=== PATIENT | female | born 1980 | race African-American/Black ===

== ENCOUNTER 2017-02-23 10:34 | Emergency (ER) | payer BC, MEDICAID ==
[2017-02-23] MEDS ORDERED: LIDOCAINE 2% VISCOUS SOLN 20 ML UDCUP PO ONE (11:02)
[2017-02-23] MEDS ORDERED: METOCLOPRAMIDE HCL ORAL SOLN 10 MG/10 ML UDCUP PO ONE (11:02)
[2017-02-23] MEDS ORDERED: MAG HYDROX/AL HYDROX/SIMETH SUSP 30 ML UDCUP PO ONE (11:02)
[2017-02-23 11:39] LABS: ABSOLUTE EOSINOPHILS # (AUTO) 0.1 10^3/uL (0.0-0.6); ABSOLUTE LYMPHOCYTES (AUTO) 1.1 10^3/uL (0.5-4.7); ABSOLUTE MONOCYTES (AUTO) 0.3 10^3/uL (0.1-1.4); ABSOLUTE NEUT (AUTO) 2.8 10^3/uL (1.7-8.2); BASOPHILS % (AUTO) 0.6 % (0-2); EOSINOPHILS % (AUTO) 1.4 % (0-6); HEMATOCRIT 37.3 % (36.0-47.0); HEMOGLOBIN 12.5 g/dL (12.0-15.5); HGB HCT DIFFERENCE 0.2; LYMPHOCYTES % (AUTO) 26.2 % (13-45); MEAN CORPUSCULAR HEMOGLOBIN 28.9 pg (27.0-33.4); MEAN CORPUSCULAR HGB CONC 33.6 g/dL (32.0-36.0); MEAN CORPUSCULAR VOLUME 86 fl (80-97); MONOCYTES % (AUTO) 6.5 % (3-13); RED BLOOD COUNT 4.34 10^6/uL (3.72-5.28); SEGMENTED NEUTROPHILS % (AUTO) 65.3 % (42-78); WHITE BLOOD COUNT 4.4 10^3/uL (4.0-10.5)
[2017-02-23 12:09] LABS: ALANINE AMINOTRANSFERASE 26 U/L (9-52); ALBUMIN 3.7 g/dL (3.5-5.0); ALKALINE PHOSPHATASE 75 U/L (38-126); ANION GAP 10 (5-19); ASPARTATE AMINO TRANSFERASE 18 U/L (14-36); BILIRUBIN,DIRECT 0.3 mg/dL (0.0-0.4); BILIRUBIN,TOTAL 0.5 mg/dL (0.2-1.3); BLOOD UREA NITROGEN 7 mg/dL (7-20); CALCIUM 8.8 mg/dL (8.4-10.2); CARBON DIOXIDE 24 mmol/L (22-30); CHLORIDE 106 mmol/L (98-107); CREATININE RESULT 0.69 mg/dL (0.52-1.25); GLUCOSE 121 mg/dL (75-110); LIPASE 212.3 U/L (23-300); POTASSIUM 3.5 mmol/L (3.6-5.0); SODIUM 140.3 mmol/L (137-145)
--- NOTE | 2017-02-23 12:25 | ER Document Report ---
ED General - General Chief Complaint: Abdominal Pain Stated Complaint: ABDOMINAL PAIN/PRESSURE TRAVEL OUTSIDE OF THE [place] IN LAST 30 DAYS: No - HPI Patient complains to provider of: epigastric abdominal pain Notes: Patient with epigastric abdominal pain radiating up into her chest worse with eating ongoing for approximately greater than a month. Patient also states whenever the pain occurred she has early Thursday stating that she doesn't feel like eating her food. Denies any nausea vomiting fevers chills. Patient denies any trauma. Patient denies any surgery to her abdomen. - Related Data Allergies/Adverse Reactions: No Known Allergies Allergy (Verified 02/23/17 10:37) Past Medical History - Social History Smoking Status: Current Some Day Smoker Chew tobacco use (# tins/day): No Frequency of alcohol use: Social Drug Abuse: None Family History: Reviewed & Not Pertinent Patient has suicidal ideation: No Patient has homicidal ideation: No Endocrine Medical History: Reports: Hx Diabetes Mellitus Type 2 - gestational diabetes Renal/ Medical History: Denies: Hx Peritoneal Dialysis GI Medical History: Reports: Hx Gastroesophageal Reflux Disease Psychiatric Medical History: Reports: Hx Depression Past Surgical History: Reports: Hx Genitourinary Surgery - D&C - Immunizations Hx Diphtheria, Pertussis, Tetanus Vaccination: Yes - declined Review of Systems - Review of Systems Constitutional: No symptoms reported EENT: No symptoms reported Cardiovascular: No symptoms reported Respiratory: No symptoms reported Gastrointestinal: Abdominal pain Genitourinary: No symptoms reported Female Genitourinary: No symptoms reported Musculoskeletal: No symptoms reported Skin: No symptoms reported Hematologic/Lymphatic: No symptoms reported Neurological/Psychological: No symptoms reported Physical Exam - Vital signs Vitals: Temp Pulse Resp BP Pulse Ox 98.6 F 88 16 148/99 H 97 02/23/17 10:37 02/23/17 10:37 02/23/17 10:37 02/23/17 10:37 02/23/17 10:37 Interpretation: Normal - General General appearance: Appears well, Alert - HEENT Head: Normocephalic, Atraumatic Eyes: Normal Pupils: PERRL - Respiratory Respiratory status: No respiratory distress Chest status: Nontender Breath sounds: Normal Chest palpation: Normal - Cardiovascular Rhythm: Regular Heart sounds: Normal auscultation Murmur: No - Abdominal Inspection: Normal Distension: No distension Bowel sounds: Normal Tenderness: Nontender Organomegaly: No organomegaly - Back Back: Normal, Nontender - Extremities General upper extremity: Normal inspection, Nontender, Normal color, Normal ROM , Normal temperature General lower extremity: Normal inspection, Nontender, Normal color, Normal ROM , Normal temperature, Normal weight bearing. No: Eugenia's sign - Neurological Neuro grossly intact: Yes Cognition: Normal Orientation: AAOx4 [place] Coma Scale Eye Opening: Spontaneous [place] Coma Scale Verbal: Oriented [place] Coma Scale Motor: Obeys Commands [place] Coma Scale Total: 15 Speech: Normal Motor strength normal: LUE, RUE, LLE, RLE Sensory: Normal - Psychological Associated symptoms: Normal affect, Normal mood - Skin Skin Temperature: Warm Skin Moisture: Dry Skin Color: Normal Course - Re-evaluation Re-evalutation: 02/23/17 12:44 Laboratory no critical etiology for the patient's symptoms. Patient did receive relief with the GI cocktail. More likely gastritis or GI in nature short patient's pain. Patient was educated about results patient was encouraged follow-up with primary care physician for possible GI referral. - Vital Signs Vital signs: Temp Pulse Resp BP Pulse Ox 98.6 F 88 16 148/99 H 97 02/23/17 10:37 02/23/17 10:37 02/23/17 10:37 02/23/17 10:37 02/23/17 10:37 - Laboratory Result Diagrams: 02/23/17 11:20 02/23/17 11:20 Laboratory results interpreted by me: 02/23/17 02/23/17 11:20 11:20 RDW 15.0 H Potassium 3.5 L Glucose 121 H Discharge - Discharge Clinical Impression: Abdominal pain Qualifiers: Abdominal location: unspecified location Qualified Code(s): R10.9 - Unspecified abdominal pain Condition: Good Disposition: HOME, SELF-CARE Instructions: Abdominal Pain ([facility]) Additional Instructions: Take medication as prescribed. Your workup today shows a normal EKG normal chest x-ray and normal laboratory studies. More likely your abdominal pain is related to possible gastritis or acid reflux. Highly recommend taking medications as prescribed and possible follow-up with her GI physician. Prescriptions: Metoclopramide HCl [Reglan] 5 mg PO Q6 #30 tablet Omeprazole 20 mg PO DAILY #30 capsule. Sucralfate [Carafate 1 gm Tablet] 1 gm PO ACHS #120 tablet Forms: Smoking Cessation Education, Return to Work
[2017-02-23 12:43] VITALS: BP 142/92
--- NOTE | 2017-02-23 21:36 | EKG REPORT ---
SEVERITY:- NORMAL ECG - SINUS RHYTHM : Confirmed by: Rip Serna 23-Feb-2017 21:35:14
== END 2017-02-23 12:43 | disposition home or self-care (01) ==
LOC: ER 10:34
DX: R10.13 Epigastric pain (principal); R07.9 Chest pain, unspecified; F17.200 Nicotine dependence, unspecified, uncomplicated
CPT/HCPCS: 93005; 99284; 36415; 84702; 83690; 85025; 80053; 84484; 74022; 93010; J3490

== ENCOUNTER 2017-11-03 08:04 | Emergency (ER) | payer BC ==
--- NOTE | 2017-11-03 08:39 | ER Document Report ---
ED GI/ - General Chief Complaint: Abdominal Pain Stated Complaint: ABDOMINAL PAIN Time Seen by Provider: 11/03/17 08:38 Mode of Arrival: Ambulatory Information source: Patient Notes: 37-year-old female complaining of crampy abdominal pain since 2 PM yesterday at work. It is intermittent. Suprapubic and left side. She states that she has had urgency in her urination difficulty holding it. No hematuria. She has some low back pain all the way across. No vaginal discharge or odor. Abstinence. No nausea vomiting or diarrhea. No history of Crohn's, colitis, diverticulitis or celiac disease. No fever. Her temperature here is 99.3. States she only had small bm today TRAVEL OUTSIDE OF THE [place] IN LAST 30 DAYS: No - Related Data Allergies/Adverse Reactions: No Known Allergies Allergy (Verified 11/03/17 08:34) Past Medical History - General Information source: Patient - Social History Smoking Status: Unknown if Ever Smoked Frequency of alcohol use: None Drug Abuse: None Lives with: Family Family History: Reviewed & Not Pertinent Endocrine Medical History: Reports: Hx Diabetes Mellitus Type 2 - gestational diabetes Renal/ Medical History: Denies: Hx Peritoneal Dialysis GI Medical History: Reports: Hx Gastroesophageal Reflux Disease Psychiatric Medical History: Reports: Hx Depression Past Surgical History: Reports: Hx Genitourinary Surgery - D&C - Immunizations Hx Diphtheria, Pertussis, Tetanus Vaccination: Yes - declined Review of Systems - Review of Systems Constitutional: No symptoms reported EENT: No symptoms reported Cardiovascular: No symptoms reported Respiratory: No symptoms reported Gastrointestinal: See HPI Genitourinary: No symptoms reported Female Genitourinary: No symptoms reported Musculoskeletal: No symptoms reported Skin: No symptoms reported Hematologic/Lymphatic: No symptoms reported Neurological/Psychological: No symptoms reported Physical Exam - Vital signs Vitals: Temp Pulse Resp BP Pulse Ox 99.3 F 92 18 134/70 H 100 11/03/17 08:25 11/03/17 08:25 11/03/17 08:25 11/03/17 08:25 11/03/17 08:25 Interpretation: Normal - General General appearance: Appears well, Alert - HEENT Head: Normocephalic, Atraumatic Eyes: Normal Conjunctiva: Normal Pupils: PERRL Mucous membranes: Normal Pharynx: Normal Neck: Supple. No: Lymphadenopathy - Respiratory Respiratory status: No respiratory distress Chest status: Nontender Breath sounds: Normal Chest palpation: Normal - Cardiovascular Rhythm: Regular Heart sounds: Normal auscultation Murmur: No - Abdominal Inspection: Normal Distension: No distension Bowel sounds: Normal Tenderness: Tender - suprapubic, LLQ-pelvis Organomegaly: No organomegaly. No: Hepatomegaly, Splenomegaly - Genitourinary External exam: Normal Speculum exam: Normal, Cervix closed Bimanuel exam: No: Cervical motion tender, Adnexal tenderness - Back Back: Normal, Nontender. No: CVA tenderness - Extremities General upper extremity: Normal inspection, Nontender, Normal color, Normal ROM , Normal temperature General lower extremity: Normal inspection, Nontender, Normal color, Normal ROM , Normal temperature, Normal weight bearing. No: Eugenia's sign - Neurological Neuro grossly intact: Yes Cognition: Normal Orientation: AAOx4 [place] Coma Scale Eye Opening: Spontaneous [place] Coma Scale Verbal: Oriented [place] Coma Scale Motor: Obeys Commands [place] Coma Scale Total: 15 Speech: Normal Motor strength normal: LUE, RUE, LLE, RLE Sensory: Normal - Psychological Associated symptoms: Normal affect, Normal mood - Skin Skin Temperature: Warm Skin Moisture: Dry Skin Color: Normal Skin irregularity: negative: Rash Course - Re-evaluation Re-evalutation: 11/03/17 10:12 Urine has been sent down to the lab and not collected it is just been collected at this time the results are pending. CBC and chemistry are normal. test is negative. 11/03/17 10:26 I spoke with pt about her lab results that are resulted, also about moving to room 31 until the urine results are back and she does not want to "be inconvienced" and is talking with the charge nuse, she wants to know why more testing is not being done, and I told her after the urine is resulted , she may need some xrays or imaging if it is not a urinary tract infection like she thought. she ststed "do I have a choice" and I said of course she did but she said she would go to room 31 but was not happy about it. I told her that I was trying to see all the patients that have checked in so they can have a private exam like she did, and she is still upset. test negative 11/03/17 13:39 Patient was asleep on the bed. STD cultures are negative, wet prep is negative. The ultrasound is negative except for a 3 cm fibroid. There is any torsion or ovarian cyst. Explained to her to follow-up with [facility] if this persists and I will prescribe her Motrin for the discomfort. She states she does not need a work note because she was off today. 11/03/17 13:39 - Vital Signs Vital signs: Temp Pulse Resp BP Pulse Ox 98.1 F 90 18 132/65 H 100 11/03/17 14:03 11/03/17 14:03 11/03/17 14:03 11/03/17 14:03 11/03/17 14:03 - Laboratory Result Diagrams: 11/03/17 08:46 11/03/17 08:46 Laboratory results interpreted by me: 11/03/17 11/03/17 08:46 08:46 Hgb 11.3 L Hct 34.2 L RDW 16.1 H AST 12 L Discharge - Discharge Clinical Impression: left pelvic pain Condition: Good Disposition: HOME, SELF-CARE Instructions: Acetaminophen, Anti-Inflammatory Medication ([facility]), Pelvic Pain ( [facility]) Additional Instructions: see obgyn if persists tylenol an motrin for pain warm compress may help to er if wrosening of the symptoms urine culture is negative Prescriptions: Ibuprofen [Motrin 800 mg Tablet] 800 mg PO Q8HP PRN #30 tablet PRN Reason:
[2017-11-03 09:02] LABS: ABSOLUTE BASOPHILS # (AUTO) 0.1 10^3/uL (0.0-0.2); ABSOLUTE EOSINOPHILS # (AUTO) 0.1 10^3/uL (0.0-0.6); ABSOLUTE LYMPHOCYTES (AUTO) 1.6 10^3/uL (0.5-4.7); ABSOLUTE MONOCYTES (AUTO) 0.7 10^3/uL (0.1-1.4); ABSOLUTE NEUT (AUTO) 7.4 10^3/uL (1.7-8.2); BASOPHILS % (AUTO) 0.6 % (0-2); EOSINOPHILS % (AUTO) 0.6 % (0-6); HEMATOCRIT 34.2 % (36.0-47.0); HEMOGLOBIN 11.3 g/dL (12.0-15.5); LYMPHOCYTES % (AUTO) 16.3 % (13-45); MEAN CORPUSCULAR HEMOGLOBIN 27.3 pg (27.0-33.4); MEAN CORPUSCULAR HGB CONC 32.9 g/dL (32.0-36.0); MEAN CORPUSCULAR VOLUME 83 fl (80-97); MONOCYTES % (AUTO) 6.7 % (3-13); PLATELET COUNT 269 10^3/uL (150-450); RED BLOOD COUNT 4.13 10^6/uL (3.72-5.28); RED CELL DISTRIBUTION WIDTH 16.1 % (11.5-14.0); SEGMENTED NEUTROPHILS % (AUTO) 75.8 % (42-78); TOTAL CELLS COUNTED % (AUTO) 100 %; WHITE BLOOD COUNT 9.8 10^3/uL (4.0-10.5)
[2017-11-03 09:24] LABS: ALANINE AMINOTRANSFERASE 20 U/L (9-52); ALBUMIN 3.8 g/dL (3.5-5.0); ALKALINE PHOSPHATASE 75 U/L (38-126); ANION GAP 10 (5-19); ASPARTATE AMINO TRANSFERASE 12 U/L (14-36); BILIRUBIN,DIRECT 0.2 mg/dL (0.0-0.4); BILIRUBIN,TOTAL 0.5 mg/dL (0.2-1.3); BLOOD UREA NITROGEN 8 mg/dL (7-20); CALCIUM 9.1 mg/dL (8.4-10.2); CARBON DIOXIDE 25 mmol/L (22-30); CHLORIDE 104 mmol/L (98-107); GLUCOSE 100 mg/dL (75-110); LIPASE 147.1 U/L (23-300); SODIUM 138.7 mmol/L (137-145); TOTAL PROTEIN 7.2 g/dL (6.3-8.2)
[2017-11-03 10:24] LABS: APPEARANCE,URINE CLEAR; BILIRUBIN,URINE NEGATIVE (NEGATIVE); COLOR,URINE YELLOW; GLUCOSE, URINE NEGATIVE (NEGATIVE); KETONES,URINE NEGATIVE (NEGATIVE); LEUKOCYTE ESTERASE,URINE NEGATIVE (NEGATIVE); NITRITE,URINE NEGATIVE (NEGATIVE); PROTEIN,URINE NEGATIVE (NEGATIVE); URINE SPECIFIC GRAVITY 1.013; UROBILINOGEN,URINE NEGATIVE mg/dL (<2.0)
[2017-11-03 12:02] LABS: T.VAGINALIS (WET MOUNT) NO TRICHOMONAS SEEN; YEAST (WET MOUNT) NO YEAST SEEN
[2017-11-03 12:03] LABS: RBCS (WET MOUNT) RARE RBCS SEEN; WBCS (WET MOUNT) FEW WBCS SEEN
[2017-11-03] MEDS ORDERED: ACETAMINOPHEN 325 MG TABLET PO ONE (12:03)
[2017-11-03] MEDS ORDERED: IBUPROFEN 800 MG TABLET PO ONE (12:03)
--- NOTE | 2017-11-03 13:19 | RADIOLOGY REPORT (SQ) ---
EXAM DESCRIPTION: U/S NON OB PEL TV W/DOPPLER COMPLETED DATE/TIME: 11/03/2017 12:40 pm REASON FOR STUDY: left pelvic pain COMPARISON: Prior pelvic ultrasound 09/02/2007, 02/25/2009, 03/21/2009, 11/07/2014 TECHNIQUE: Dynamic and static grayscale images acquired of the pelvis via transvaginal approach and recorded on PACS. Additional selected color Doppler and spectral images recorded. LIMITATIONS: None. FINDINGS: UTERUS: Contour normal. No mass. Uterus is 9.3 x 6.5 x 5.4 cm in size. Heterogeneous my ometrium anteriorly likely reflect a small fibroid less than 3 cm in size. ENDOMETRIAL STRIPE: No focal or generalized thickening. No masses. Endometrium 9 to 10 mm in thickne ss. CERVIX: No nabothian cysts. RIGHT OVARY: No abnormal masses. Right ovary 3.6 x 2.3 x 3.1 cm in size. RIGHT OVARY DOPPLER: Normal arterial vascular flow without evidence for torsion. LEFT OVARY: No abnormal masses. Left ovary 3.6 x 2.4 x 2.4 cm size. LEFT OVARY DOPPLER: Normal arterial vascular flow without evidence for torsion. FREE FLUID: None noted. OTHER: No other significant finding. IMPRESSION: HETEROGENEOUS MYOMETRIUM LIKELY FROM MULTIPLE SMALL UTERINE FIBROIDS. OTHERWISE, NORMAL TRANSVAGINAL PELVIC ULTRASOUND. TECHNICAL DOCUMENTATION: JOB ID: [id number]- All Rights Reserved
[2017-11-03 13:25] LABS: CHLAM PCR NOT DETECTED (NOT DETECT); GON PCR NOT DETECTED (NOT DETECT)
[2017-11-03 14:04] VITALS: BP 132/65
== END 2017-11-03 14:04 | disposition home or self-care (01) ==
LOC: ER 08:04
DX: D21.9 Benign neoplasm of connective and other soft tissue, unspecified (principal); R10.2 Pelvic and perineal pain; R39.15 Urgency of urination; M54.5 Low back pain
CPT/HCPCS: 36415; 76830; 80053; 81001; 83690; 84703; 85025; 87086; 87210; 87491; 87591; 93976; 99284

== ENCOUNTER 2018-01-30 03:27 | Emergency (ER) | payer BC ==
[2018-01-30 03:47] VITALS: BP 124/87
[2018-01-30] MEDS ORDERED: IBUPROFEN 800 MG TABLET PO ONE (04:24)
[2018-01-30] MEDS ORDERED: LIDOCAINE 5% (700 MG) TRANSDERMAL ADH..PATCH TP ONE (04:24)
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
== END 2018-01-30 05:28 | disposition home or self-care (01) ==
LOC: ER 03:27
DX: S76.911A Strain of unspecified muscles, fascia and tendons at thigh level, right thigh, initial encounter (principal); Y04.2XXA Assault by strike against or bumped into by another person, initial encounter; Y92.009 Unspecified place in unspecified non-institutional (private) residence as the place of occurrence of the external cause; F17.200 Nicotine dependence, unspecified, uncomplicated
CPT/HCPCS: 99283

== ENCOUNTER 2018-04-10 13:53 | Emergency (ER) | payer BC ==
[2018-04-10] MEDS ORDERED: NORMAL SALINE 1000 ML 1,000 ML IV PRN (14:19)
--- NOTE | 2018-04-10 14:45 | ER Document Report ---
ED General - General Chief Complaint: Dizziness Stated Complaint: LIGHTHEADED Time Seen by Provider: 04/10/18 14:18 Notes: The patient is a 37-year-old female, 12 weeks by LMP, presents after she was feeling slightly lightheaded earlier today and tripped down a few stairs. Patient does not think she hit her head and did not have LOC. No injuries from the fall. She has had 3 days of watery diarrhea and is trying to stay hydrated. She denies abdominal pain, vaginal bleeding, vaginal cramping, dysuria, chest pain, shortness of breath, blood in her stool, recent travel, recent antibiotic use, LOC, neck pain or blurry vision. TRAVEL OUTSIDE OF THE [place] IN LAST 30 DAYS: No - Related Data Allergies/Adverse Reactions: No Known Allergies Allergy (Verified 04/10/18 13:54) Past Medical History - General Information source: Patient - Social History Smoking Status: Never Smoker Chew tobacco use (# tins/day): No Frequency of alcohol use: None Drug Abuse: None Family History: Reviewed & Not Pertinent Patient has suicidal ideation: No Patient has homicidal ideation: No Endocrine Medical History: Reports: Hx Diabetes Mellitus Type 2 - gestational diabetes Renal/ Medical History: Denies: Hx Peritoneal Dialysis GI Medical History: Reports: Hx Gastroesophageal Reflux Disease Psychiatric Medical History: Reports: Hx Depression Past Surgical History: Reports: Hx Genitourinary Surgery - D&C - Immunizations Hx Diphtheria, Pertussis, Tetanus Vaccination: Yes - declined Review of Systems - Review of Systems Notes: REVIEW OF SYSTEMS: CONSTITUTIONAL: -fevers, -chills EENT: -eye pain, -difficulty swallowing, -nasal congestion CARDIOVASCULAR: -chest pain, -syncope. RESPIRATORY: -cough, -SOB GASTROINTESTINAL: -abdominal pain, -nausea, -vomiting, +diarrhea GENITOURINARY: -dysuria, -hematuria MUSCULOSKELETAL: -back pain, -neck pain SKIN: -rash or skin lesions. HEMATOLOGIC: -easy bruising or bleeding. LYMPHATIC: -swollen, enlarged glands. NEUROLOGICAL: -altered mental status or loss of consciousness, -headache, - neurologic symptoms PSYCHIATRIC: -anxiety, -depression. ALL OTHER SYSTEMS REVIEWED AND NEGATIVE. Physical Exam - Vital signs Vitals: Temp Pulse Resp BP Pulse Ox 99.0 F 92 16 138/78 H 96 04/10/18 14:02 04/10/18 14:02 04/10/18 14:02 04/10/18 14:02 04/10/18 14:02 - Notes Notes: PHYSICAL EXAMINATION: GENERAL: Well-appearing, well-nourished and in no acute distress. HEAD: Atraumatic, normocephalic. EYES: Pupils equal round and reactive to light, extraocular movements intact, sclera anicteric, conjunctiva are normal. ENT: nares patent, oropharynx clear without exudates. Moist mucous membranes. NECK: Normal range of motion, supple without lymphadenopathy LUNGS: Breath sounds clear to auscultation bilaterally and equal. No wheezes rales or rhonchi. HEART: Regular rate and rhythm without murmurs ABDOMEN: Soft, nontender, normoactive bowel sounds. No guarding, no rebound. No masses appreciated. EXTREMITIES: Normal range of motion, no pitting or edema. No cyanosis. NEUROLOGICAL: Cranial nerves grossly intact. Normal speech, normal gait. Normal sensory and motor exams. PSYCH: Normal mood, normal affect. SKIN: Warm, Dry, normal turgor, no rashes or lesions noted. Course - Re-evaluation Re-evalutation: Bedside US shows a single IUP consistent with LMP and FHR 142. Patient appears well. She has no injuries from the fall and her EKG does not show any evidence of arrhythmias, prolonged QT syndrome or WPW. Patient has had profuse diarrhea for the past 3 days, but no recent travel or recent antibiotic use. Will provide her with IV fluids, check blood work and urinalysis and reassess. 04/10/18 16:38 Pt feels much better after IVF. Blood work is remarkable for slight hypokalemia and this was repleted in the ER. Instructed her to follow- up with her OB for further evaluation and treatment. - Vital Signs Vital signs: Temp Pulse Resp BP Pulse Ox 99.0 F 92 14 130/72 H 98 04/10/18 14:02 04/10/18 14:02 04/10/18 15:24 04/10/18 15:24 04/10/18 15:24 - Laboratory Result Diagrams: 04/10/18 14:35 04/10/18 14:35 Laboratory results interpreted by me: 04/10/18 04/10/18 04/10/18 14:35 14:35 15:21 Hgb 11.5 L Hct 34.1 L RDW 17.5 H Potassium 3.5 L Chloride 108 H Carbon Dioxide 21 L BUN 6 L Creatinine 0.51 L Glucose 112 H Urine Ascorbic Acid 20 H - EKG Interpretation by Me EKG shows normal: Sinus rhythm, [place], Intervals, QRS Complexes, ST-T Waves Rate: Normal Discharge - Discharge Clinical Impression: Light-headed feeling, Hypokalemia Diarrhea Qualifiers: Diarrhea type: unspecified type Qualified Code(s): R19.7 - Diarrhea, unspecified Condition: Stable Disposition: HOME, SELF-CARE Additional Instructions: DIARRHEA, NON-SPECIFIC: Diarrhea means frequent, watery stools. There are many causes. Any problem that keeps the intestinal tract from absorbing water from the stool can lead to diarrhea. A sudden new diarrhea problem is usually caused by a virus, food sensitivity, toxic bacteria, or drugs. In this case, we expect the problem to go away soon. Testing is done only if you seem seriously ill from the diarrhea. If you have chronic diarrhea, or diarrhea that keeps coming back, we need to find out why. Chronic diarrhea can be due to inflammation of the bowels such as Crohn's disease or ulcerative colitis, food sensitivity such as intolerance to lactose or wheat protein, irritable bowel syndrome, and other problems. If your diarrhea is a significant problem but it's not clear why you have it, we' ll refer you to a specialist for further testing. During an episode of diarrhea, drink small amounts (two to six ounces) of clear liquids (soft drinks, sport drinks, herb teas, broth, etc). Take fluids frequently to prevent dehydration. It's usually not a problem to take mild anti- diarrhea medication such as Kaopectate or Pepto-Bismol. As the diarrhea eases, advance to small amounts of bland food (mashed potato, toast) for 24 hours. Call the physician if blood appears in your vomit or stool, if vomiting lasts longer than 24 hours, if the abdominal pain worsens or becomes localized to one area, if you develop high fever, or if you become lightheaded and weak. VIRAL SYNDROME: The physician has diagnosed a viral infection. Viruses not only cause "colds," but can cause many different symptoms including generalized aching, fever, headache, cough, diarrhea, nausea, vomiting, and fatigue. The treatment, for the most part, is simply relief of symptoms. This means that antibiotics are usually not given. Rest, fluids, pain medications and, occasionally, medication for the specific symptoms that are most bothersome will be prescribed. Use good handwashing to avoid passing the virus to others. Shared toys should be cleaned with disinfectant. Clean the toilets, sinks, and counter surfaces in bathrooms. Launder clothing in hot water. Contact the physician if you develop any new or unusual symptoms such as severe headache, stiff neck, high fever, chest pain, productive cough, or shortness of breath. You should be rechecked if you don't see marked improvement within seven to 10 days. INTRAVENOUS (I V) FLUIDS: As part of your care today, you received intravenous (IV) fluids. IV fluids are administered to patients who are dehydrated or to those who have certain chemical (electrolyte) abnormalities that need correcting. FOLLOW-UP CARE: If you have been referred to a physician for follow-up care, call the physician s office for an appointment as you were instructed or within the next two days. If you experience worsening or a significant change in your symptoms, notify the physician immediately or return to the Emergency Department at any time for re-evaluation. NEAR SYNCOPAL EPISODE: Syncope or near syncope (fainting or near-fainting) can occur from many different health problems. Or it can be a simple fainting spell requiring no treatment. It is safe for you to go home, but further evaluation will likely be necessary. Your work-up may include tests for internal bleeding, heart disease, medication problems, or near-strokes. Tests are not always required, however, depending on the nature of your problem. The warning signs of an impending faint include: dizziness, lightheadedness , nausea, hot flashes, tingling, and weakness. If this happens, lay down and put your feet up, then wait until all of these symptoms have passed before standing up again. If these episodes become recurrent, or if you develop chest pain, heart palpitations, mental confusion, blurred vision, or headache, then you should call the physician, or go to the emergency room. NORMAL EXAM AND WORKUP: At this time, your examination and workup show no significant abnormality. No significant abnormal physical findings were noted. All laboratory, EKG, and imaging (x-ray, CT scans, ultrasound) studies that were ordered show no significant abnormality. Although your examination and all studies that were ordered showed no significant abnormal finding, there are no examinations and no studies that are 100% accurate. There is always the possibility that some abnormality could exist and not be detected with physical examination or within the limits and capabilities of laboratory and other studies. You should return or follow up as you were instructed on your visit today for further evaluation if your symptoms do not resolve. FOLLOW-UP CARE: If you have been referred to a physician for follow-up care, call the physician s office for an appointment as you were instructed or within the next two days. If you experience worsening or a significant change in your symptoms, notify the physician immediately or return to the Emergency Department at any time for re-evaluation. HYPOKALEMIA: You have an abnormally decreased level of serum potassium. Hypokalemia may cause weakness, fatigue, or heart rhythm abnormalities. Sometimes there are no symptoms at all. Usually, low serum potassium is due to taking diuretics ( water pills). It can also be due to excessive vomiting or diarrhea. If no obvious cause is evident, further evaluation will be necessary. Treatment is usually oral potassium supplements. Take these exactly as prescribed. You may also want to select foods which are naturally high in potassium -- fruits (such as bananas, cantaloupe, grapes, oranges, prunes, tomatoes), fresh vegetables (potatoes, spinach, beans, peas), orange or tomato juice, tomato pasta sauce, milk, fish (halibut, tuna, salmon, diya) A follow-up blood test is usually performed to assure that the potassium is returning to normal. Call the physician if you suffer severe weakness, muscle twitching or cramping, palpitations (pounding or irregular heartbeat), or any other new or alarming symptoms. POTASSIUM: A potassium-containing medication has been prescribed. This is usually used to treat potassium depletion caused by diuretics or by vomiting and diarrhea. This type of medicine is available in many forms, including elixirs, powders, fruity drinks, and pills. If one type is not working out for you, another can be substituted. Potassium can cause stomach upset. This can be prevented by taking it with meals. Do not take more than your doctor recommends. Notify your doctor if you develop repeated vomiting, black or bloody stool , severe weakness or numbness. FOODS HIGH IN POTASSIUM: baked potato with skin 1080 mg tomato pasta sauce, 1 cup 940 sweet potato with skin 690 orange juice, 1 cup 480 libyan chard 480 tuna, 3 oz 480 cantaloupe, 1 cup 430 banana 420 spinach 420 yogurt, plain, nofat, 6 oz 400 milk, 1 cup 370 watermelon, 2 cups 340 tomato, 1/2 cup 210 Other foods high in potassium are most other fruits and vegetables and fish. FOLLOW-UP CARE: If you have been referred to a physician for follow-up care, call the physician s office for an appointment as you were instructed or within the next two days. If you experience worsening or a significant change in your symptoms, notify the physician immediately or return to the Emergency Department at any time for re-evaluation. Forms: Elevated Blood Pressure Referrals: [facility] [Provider Group] - Follow up as needed
[2018-04-10 15:05] LABS: ABSOLUTE EOSINOPHILS # (AUTO) 0.1 10^3/uL (0.0-0.6); ABSOLUTE LYMPHOCYTES (AUTO) 1.4 10^3/uL (0.5-4.7); ABSOLUTE MONOCYTES (AUTO) 0.3 10^3/uL (0.1-1.4); ABSOLUTE NEUT (AUTO) 3.7 10^3/uL (1.7-8.2); BASOPHILS % (AUTO) 0.3 % (0-2); EOSINOPHILS % (AUTO) 2.3 % (0-6); HEMATOCRIT 34.1 % (36.0-47.0); HEMOGLOBIN 11.5 g/dL (12.0-15.5); MEAN CORPUSCULAR HGB CONC 33.6 g/dL (32.0-36.0); MEAN CORPUSCULAR VOLUME 83 fl (80-97); MONOCYTES % (AUTO) 6.1 % (3-13); PLATELET COUNT 193 10^3/uL (150-450); RED CELL DISTRIBUTION WIDTH 17.5 % (11.5-14.0); SEGMENTED NEUTROPHILS % (AUTO) 66.3 % (42-78); TOTAL CELLS COUNTED % (AUTO) 100 %; WHITE BLOOD COUNT 5.6 10^3/uL (4.0-10.5)
[2018-04-10 16:03] LABS: ALANINE AMINOTRANSFERASE 15 U/L (9-52); ALBUMIN 3.5 g/dL (3.5-5.0); ALKALINE PHOSPHATASE 48 U/L (38-126); ANION GAP 11 (5-19); ASPARTATE AMINO TRANSFERASE 14 U/L (14-36); BILIRUBIN,DIRECT 0.2 mg/dL (0.0-0.4); BILIRUBIN,TOTAL 0.2 mg/dL (0.2-1.3); BLOOD UREA NITROGEN 6 mg/dL (7-20); CALCIUM 8.9 mg/dL (8.4-10.2); CARBON DIOXIDE 21 mmol/L (22-30); CHLORIDE 108 mmol/L (98-107); GLUCOSE 112 mg/dL (75-110); POTASSIUM 3.5 mmol/L (3.6-5.0); SODIUM 139.5 mmol/L (137-145); TOTAL PROTEIN 6.7 g/dL (6.3-8.2)
[2018-04-10 16:04] LABS: APPEARANCE,URINE CLEAR; BILIRUBIN,URINE NEGATIVE (NEGATIVE); COLOR,URINE YELLOW; GLUCOSE, URINE NEGATIVE (NEGATIVE); KETONES,URINE NEGATIVE (NEGATIVE); LEUKOCYTE ESTERASE,URINE NEGATIVE (NEGATIVE); NITRITE,URINE NEGATIVE (NEGATIVE); PROTEIN,URINE NEGATIVE (NEGATIVE); URINE SPECIFIC GRAVITY 1.028; UROBILINOGEN,URINE NEGATIVE mg/dL (<2.0)
[2018-04-10] MEDS ORDERED: POTASSIUM CHLORIDE 10 MEQ CAPSULE.ER PO ONE (16:27)
--- NOTE | 2018-04-10 16:41 | EKG REPORT ---
SEVERITY:- NORMAL ECG - SINUS RHYTHM : Confirmed by: Rip Serna 10-Apr-2018 16:40:36
[2018-04-10 16:44] VITALS: BP 128/84
== END 2018-04-10 16:43 | disposition home or self-care (01) ==
LOC: ER 13:53
DX: O26.91 Pregnancy related conditions, unspecified, first trimester (principal); R42 Dizziness and giddiness; E87.6 Hypokalemia; R19.7 Diarrhea, unspecified; W10.9XXA Fall (on) (from) unspecified stairs and steps, initial encounter; Z3A.12 12 weeks gestation of pregnancy
CPT/HCPCS: 93005; 99284; 96360; 36415; 85025; 80053; 81001; 93010; J7030

== ENCOUNTER 2018-06-05 13:34 | Emergency (ER) | payer BC ==
[2018-06-05 13:45] VITALS: BP 121/67
[2018-06-05] MEDS ORDERED: ACETAMINOPHEN 325 MG TABLET PO ONE (15:28)
--- NOTE | 2018-06-05 15:35 | ER Document Report ---
ED Fall - General Chief Complaint: Fall Injury Stated Complaint: BACK PAIN Time Seen by Provider: 06/05/18 14:32 Mode of Arrival: Ambulatory Information source: Patient Notes: There is 37-year-old female presents to ED for complaint of low back pain. She states she fell getting out of the bathtub this morning. She denies hitting her head or any loss of consciousness. She is alert oriented speaks in full sentences pupils equal and react to light walks with a even steady gait. Patient is 5 months . Patient denies any vaginal bleeding or any pelvic pain. TRAVEL OUTSIDE OF THE [place] IN LAST 30 DAYS: No - HPI Occurred: This morning Where: Home, Indoors Context: Slipped Associated symptoms: None Location of injury/pain: Back, Hip - Right hip thigh and low back Quality of pain: Achy - And tenderness, Burning - Down her right thigh Severity: Moderate Pain Level: 3 - Related data Allergies/Adverse Reactions: No Known Allergies Allergy (Verified 06/05/18 13:40) Past Medical History - General Information source: Patient - Social History Smoking Status: Former Smoker Cigarette use (# per day): No Chew tobacco use (# tins/day): No Smoking Education Provided: No Frequency of alcohol use: None Drug Abuse: None Occupation: [employer] Lives with: Alone - This 2-year-old Family History: Reviewed & Not Pertinent Patient has suicidal ideation: No Patient has homicidal ideation: No - Past Medical History Cardiac Medical History: Reports: None Pulmonary Medical History: Reports: None EENT Medical History: Reports: None Neurological Medical History: Reports: None Endocrine Medical History: Reports: Hx Diabetes Mellitus Type 2 - gestational diabetes Renal/ Medical History: Reports: None Malignancy Medical History: Reports: None GI Medical History: Reports: Hx Gastroesophageal Reflux Disease Musculoskeletal Medical History: Reports None Skin Medical History: Reports None Psychiatric Medical History: Reports: Hx Depression Traumatic Medical History: Reports: None Infectious Medical History: Reports: None Past Surgical History: Reports: Hx Genitourinary Surgery - D&C - Immunizations Hx Diphtheria, Pertussis, Tetanus Vaccination: Yes - declined Review of Systems - Review of Systems Constitutional: No symptoms reported EENT: No symptoms reported Cardiovascular: No symptoms reported Respiratory: No symptoms reported Gastrointestinal: No symptoms reported Genitourinary: No symptoms reported Female Genitourinary: No symptoms reported Musculoskeletal: Back pain - Right buttocks right hip and right thigh after falling out of a tub Skin: No symptoms reported Hematologic/Lymphatic: No symptoms reported Neurological/Psychological: No symptoms reported -: Yes All other systems reviewed and negative Physical Exam - Vital signs Vitals: Temp Pulse Resp BP Pulse Ox 98.9 F 87 16 121/67 98 06/05/18 13:44 06/05/18 13:44 06/05/18 13:44 06/05/18 13:44 06/05/18 13:44 Interpretation: Normal - General General appearance: Appears well, Alert - HEENT Head: Normocephalic, Atraumatic Eyes: Normal Pupils: PERRL - Respiratory Respiratory status: No respiratory distress Chest status: Nontender Breath sounds: Normal Chest palpation: Normal - Cardiovascular Rhythm: Regular Heart sounds: Normal auscultation Murmur: No - Abdominal Inspection: Normal Distension: No distension Bowel sounds: Normal Tenderness: Nontender Organomegaly: No organomegaly - Back Back: Normal, Tender - right buttocks. No: Deformity/step-off, CVA tenderness, Vertebra tenderness, Scars, Scoliosis, Wounds, Other - Extremities General upper extremity: Normal inspection, Nontender, Normal color, Normal ROM , Normal temperature General lower extremity: Normal inspection, Normal color, Normal ROM, Normal temperature, Normal weight bearing. No: Eugenia's sign Hip: Tender - Right hip. No: Abrasion, Deformity, Dislocation, Ecchymosis, Instability, Laceration, Pain with ROM, Unable to bear weight Thigh: Tender - Right thigh. No: Abrasion, Deformity, Dislocation, Ecchymosis, Instability, Laceration, Unable to bear weight - Neurological Neuro grossly intact: Yes Cognition: Normal Orientation: AAOx4 [place] Coma Scale Eye Opening: Spontaneous [place] Coma Scale Verbal: Oriented [place] Coma Scale Motor: Obeys Commands [place] Coma Scale Total: 15 Speech: Normal Motor strength normal: LUE, RUE, LLE, RLE Sensory: Normal - Psychological Associated symptoms: Normal affect, Normal mood - Skin Skin Temperature: Warm Skin Moisture: Dry Skin Color: Normal Course - Re-evaluation Re-evalutation: 06/05/18 22:18 Discussed with patient that we could not x-rayed this area as she is 5 months . Patient is able to ambulate and move hip and back with no difficulty. Patient was instructed on use of Tylenol ice and warm packs due to the fact that she is 5 months . - Vital Signs Vital signs: Temp Pulse Resp BP Pulse Ox 98.9 F 87 16 121/67 98 06/05/18 13:44 06/05/18 13:44 06/05/18 13:44 06/05/18 13:44 06/05/18 13:44 Discharge - Discharge Clinical Impression: fall out of tub, Contusion of right thigh, initial encounter Contusion of right hip Qualifiers: Encounter type: initial encounter Qualified Code(s): S70.01XA - Contusion of right hip, initial encounter Condition: Stable Disposition: HOME, SELF-CARE Additional Instructions: CONTUSION: Your injury has resulted in a contusion -- a crushing of the deep tissues. No injury to important structures was detected during the physician's exam. Contusions vary in the amount of pain they cause, and in the length of time required for healing. Typically, the area will become bruised, and will remain painful to touch for two or three weeks. However, most patients are back to working and playing within a few days. After the initial period of rest and cold-packs, your symptoms (together with the doctor's recommendations) will determine how rapidly you can get back to full activity. Usually this means "do what feels okay, but don't do things that hurt." If re-examination was recommended, it's important to follow up as instructed. Call the doctor or return any time if pain increases, if swelling becomes severe, if you develop numbness or weakness in an injured extremity, or if any other alarming symptoms occur. LOW BACK PAIN: Three out of every four people will have an episode of disabling back pain during their lifetime. Most commonly the pain is due to straining of the muscles and ligaments in the low back. Usual treatment includes: (1) Rest on a firm surface. Avoid lying on your stomach. (2) Ice pack the painful area. After a few days, gentle heat may be used intermittently to relax the area, or ice packs can be continued. (3) Medication may be needed -- muscle relaxers and antiinflammatory medicines are commonly used. (4) As the back improves, exercises are prescribed to strengthen the back and abdominal muscles. Your doctor will advise you on the proper care for your back at each stage in your recovery. You may be better in a few days -- or healing may take several weeks. If new symptoms of a "herniated disc" (radiation of pain, numbness, or tingling down the back of the leg or weakness in the leg) occur, you should be re-examined. Further testing may be necessary. USE OF TYLENOL (ACETAMINOPHEN): Acetaminophen may be taken for pain relief or fever control. It's much safer than aspirin, offering a wider range of "safe" dosages. It is safe during . Some brand names are Tylenol, Panadol, Datril, Anacin 3, Tempra, and Liquiprin. Acetaminophen can be repeated every four hours. The following are maximum recommended dosages: WEIGHT Dose Drops Elixir Chewable( 80mg) (LBS.) drprs=droppers tsp=teaspoon 6 40 mg 0.4 ml (1/2) 6-11 80 mg 0.8 ml (full) tsp 1 tab 12-16 120 mg 1 1/2 drprs 3/4 tsp 1 1/2 tabs 17-23 160 mg 2 drprs 1 tsp 2 tabs 24-30 240 mg 3 drprs 1 1/2 tsp 3 tabs 30-35 320 mg 2 tsp 4 tabs 36-41 360 mg 2 1/4 tsp 4 1/2 tabs 42-47 400 mg 2 1/2 tsp 5 tabs 48-53 480 mg 3 tsp 6 tabs 54-59 520 mg 3 1/4 tsp 6 1/2 tabs 60-64 560 mg 3 1/2 tsp 7 tabs 65-70 600 mg 3 3/4 tsp 7 1/2 tabs 71-76 640 mg 4 tsp 8 tabs 77-82 720 mg 4 1/2 tsp 9 tabs 83-88 800 mg 5 tsp 10 tabs >89 pounds or adults 650 mg to 900 mg Acetaminophen can be repeated every four hours. Maximum dose not to exceed 4000 mg a day. These maximum recommended dosages are slightly higher than the dosages written on the product container, but these dosages are very safe and below the toxic dosage for acetaminophen. ICE PACKS: Apply ice packs frequently against the painful area. Many different schedules are recommended, such as "20 minutes on, 20 minutes off" or "one hour ice, two hours rest." If you need to work, you may need to go longer between ice treatments. You should plan to have the area ice packed AT LEAST one fourth of the time. The ice should be applied over the wrap, tape, or splint, or over a layer of cloth -- not directly against the skin. Some ice bags have a built-in cloth and can be put directly on the skin. WARM PACKS: After approximately two days, apply gentle heat (such as a heating pad or hot water bottle) for about 20 to 30 minutes about every two hours -- at least four times daily. Warmth and elevation will help you make a more rapid recovery , and will ease the pain considerably. Do not use HOT heat, and never apply heat for longer than 30 minutes. The continuous heat can invisibly damage skin and muscles -- even when no burn is seen on the surface. Damaged muscles can make you MORE sore. Stretching Exercises for the Back The physician has recommended that you begin stretching exercises for your back. These are often used even while the back is painful. However, you should notify the physician if the activities seem to increase your pain. PELVIC TILT: Lie flat on your back with knees bent. Tighten your stomach and buttock muscles so it flattens your lower back against the floor. Hold 10 seconds. Repeat 10 times, twice daily. KNEE RAISE: Lying on the back with knees bent, raise one knee to your chest, then the other. Hold both knees against the chest 10 seconds, then lower one knee at a time. Repeat 10 times, twice daily. PARTIAL TRUNK RAISE: Lie face down, arms at your sides. Keeping your waist on the floor, use your arms raise your chest up. Support yourself on your elbows for 30 seconds. Repeat twice daily, increasing the time to two minutes as you recover. FOLLOW-UP CARE: If you have been referred to a physician for follow-up care, call the physician s office for an appointment as you were instructed or within the next two days. If you experience worsening or a significant change in your symptoms, notify the physician immediately or return to the Emergency Department at any time for re-evaluation. Referrals: [facility] [Provider Group] - Follow up as needed
== END 2018-06-05 15:38 | disposition home or self-care (01) ==
LOC: ER 13:34
DX: O9A.219 Injury, poisoning and certain other consequences of external causes complicating pregnancy, unspecified trimester (principal); S70.01XA Contusion of right hip, initial encounter; S70.11XA Contusion of right thigh, initial encounter; M54.5 Low back pain; W17.89XA Other fall from one level to another, initial encounter; Y92.002 Bathroom of unspecified non-institutional (private) residence as the place of occurrence of the external cause; Z87.891 Personal history of nicotine dependence; Z3A.00 Weeks of gestation of pregnancy not specified
CPT/HCPCS: 99283

== ENCOUNTER 2018-10-19 10:28 | Outpatient (CLI) | payer BC ==
[2018-10-19 11:05] LABS: APPEARANCE,URINE SLIGHTLY-CLOUDY; BILIRUBIN,URINE NEGATIVE (NEGATIVE); COLOR,URINE YELLOW; GLUCOSE, URINE NEGATIVE (NEGATIVE); KETONES,URINE NEGATIVE (NEGATIVE); LEUKOCYTE ESTERASE,URINE NEGATIVE (NEGATIVE); NITRITE,URINE NEGATIVE (NEGATIVE); PROTEIN,URINE NEGATIVE (NEGATIVE); URINE SPECIFIC GRAVITY 1.008; UROBILINOGEN,URINE NEGATIVE mg/dL (<2.0)
[2018-10-19 11:21] LABS: URINE AMPHETAMINES SCREEN NEGATIVE; URINE BARBITURATES SCREEN NEGATIVE; URINE BENZODIAZEPINES SCREEN NEGATIVE; URINE COCAINE SCREEN NEGATIVE; URINE MARIJUANA (THC) SCREEN NEGATIVE; URINE METHADONE SCREEN NEGATIVE; URINE PHENCYCLIDINE SCREEN NEGATIVE
--- NOTE | 2018-10-21 15:51 | Non Stress Test Report ---
Non Stress Test Datetime Report Generated by CPN: 10/21/2018 15:51 DEMOGRAPHIC EGA NST: 40.2 INDICATION Indication for Study: Decreased Movement MONITORING Monitor Explained: Monitor Explained; Test Explained; Patient Verbalized Understanding Time on Monitor: 10/19/2018 10:37 Time off Monitor: 10/19/2018 10:57 NST Duration: 20 NST INTERVENTIONS NST Interventions: PO Hydration Physician Notified NST: Vernon BABY A: [id number] BABY A Movement : Present Contraction Frequency : 0 FHR Baseline : 135 Accelerations : 15X15 Decelerations : None Variability : Moderate 6-25bpm NST Review: Meets Criteria for Reactive NST NST Review and Verified By : BLESSING Capellan NSLaurie Results: Reactive NST REPORT Report Trigger: Send Report
== END 2018-10-19 11:00 | disposition hospice, home (50) ==
LOC: LC 10:28
PROVIDERS: ATTEND Obstetrics & Gynecology
PROC: 4A1HXCZ Monitoring of Products of Conception, Cardiac Rate, External Approach (ICD-10-PCS; principal; 2018-10-19)
DX: O36.8130 Decreased fetal movements, third trimester, not applicable or unspecified (principal); O09.523 Supervision of elderly multigravida, third trimester; O48.0 Post-term pregnancy; Z3A.40 40 weeks gestation of pregnancy
CPT/HCPCS: 59025; 80307; 81005

== ENCOUNTER 2018-10-21 15:57 | Outpatient (CLI) | payer BC ==
--- NOTE | 2018-10-21 16:33 | Non Stress Test Report ---
Non Stress Test Datetime Report Generated by CPN: 10/21/2018 16:33 DEMOGRAPHIC EGA NST: 40.4 INDICATION Indication for Study: Diabetes Mellitus MONITORING Monitor Explained: Monitor Explained; Test Explained; Patient Verbalized Understanding Time on Monitor: 10/21/2018 16:09 Time off Monitor: 10/21/2018 16:32 NST Duration: 23 NST INTERVENTIONS NST Interventions: PO Hydration Physician Notified NST: P. Santoro, CNM BABY A Movement : Present Contraction Frequency : 0 FHR Baseline : 135 Accelerations : 15X15 Decelerations : None Variability : Moderate 6-25bpm NST Review: Meets Criteria for Reactive NST NST Review and Verified By : SAM ASENCIO RN NST Results: Reactive NST REPORT Report Trigger: Send Report
== END 2018-10-21 16:37 | disposition home or self-care (01) ==
LOC: LC 15:57
PROVIDERS: ATTEND Student in an Organized Health Care Education/Training Program
PROC: 4A1HXCZ Monitoring of Products of Conception, Cardiac Rate, External Approach (ICD-10-PCS; principal; 2018-10-21)
DX: O48.0 Post-term pregnancy (principal); O24.419 Gestational diabetes mellitus in pregnancy, unspecified control; O09.523 Supervision of elderly multigravida, third trimester; Z3A.40 40 weeks gestation of pregnancy
CPT/HCPCS: 59025

== ENCOUNTER 2018-10-26 09:45 | Inpatient (IN) | payer BC ==
[2018-10-26] MEDS ORDERED: RINGERS SOLUTION,LACTATED 1,000 ML IV PRN (10:05)
[2018-10-26] MEDS ORDERED: RINGERS SOLUTION,LACTATED 300 ML IV ONE (10:05)
[2018-10-26] MEDS ORDERED: OXYTOCIN/NORMAL SALINE 20 UNIT/1,000 ML RTUINJ IV PRN ×2 (10:05→16:51)
--- NOTE | 2018-10-26 10:32 | Admission Physical ---
Datetime Report Generated by CPN: 10/26/2018 10:32 CURRENT ADMISSION Chief Complaint: Scheduled Induction of Labor Indication for Induction: Post Dates Admit Impression : Term, Intrauterine ; Intact Membranes; Induction of Labor Admit Plan: Admit to Unit ALLERGIES Medication Allergies: No Medication Allergies: No Known Allergies (06/05/2018) Latex: No Latex Allergies OBSTETRICAL HISTORY EDC: 10/17/2018 00:00 : 4 Para: 2 Gestational Diabetes: No Rh Sensitization: No Incompetent Cervix: No KARLA: No Infertility: No ART Treatment: No Uterine Anomaly: No IUGR: No Hx Previous C/S: No Macrosomia: No Hx Loss/Stillborn: No PIH: No Hx : No Placenta Previa/Abruption: No Depression/PP Depression: No PTL/PROM: No Post Hemorrhage: No Obstetrical History Comments: G1 girl G2 SAB G3 2015 girl G4 current SEE RECORDS Alcohol: No Marijuana : No Cocaine: No Other Illicit Drugs: No Cigarettes: Never Smoker. [id number] MEDICAL HISTORY Diabetes: No Diabetes Type: Gestational Diabetes Blood Transfusion: No Pulmonary Disease (Asthma, TB): No Breast Disease: No Hypertension: No Chef De Cuisine Surgery: No Heart Disease: No Hosp/Surgery: No Autoimmune Disorder: No Anesthetic Complications: No Kidney Disease: No Abnormal Pap Smear: No Neuro/Epilepsy: No Psychiatric Disorders: No Other Medical Diseases: No Hepatitis/Liver Disease: No Significant Family History: No Varicosities/Phlebitis: No Trauma/Violence : No Thyroid Dysfunction: No INFECTIOUS HISTORY Gonorrhea: No Genital Herpes: No Chlamydia: No Tuberculosis: No Syphilis: No Hepatitis: No HIV/AIDS Exposure: No Rash or Viral Illness: No HPV: No PHYSICAL EXAM General: Normal HEENT: Normal Neurologic: Normal Thyroid: Normal Heart: Normal Lungs: Normal Breast: Normal Back: Normal Abdomen: Normal Genitourinary Exam: Normal Extremities: Normal DTRs: Normal Pelvic Type: Adequate Vital Signs: Reviewed; Within Normal Limits VAGINAL EXAM Dilatation: 3 Effacement: 50 Station: -3 Contraction Comments: rare MEMBRANES Membranes: Intact FETUS A EGA: 41.2 Monitoring: External US FHR- Baseline: 145 Variability: Moderate 6-25bpm Accelerations: Absent Decelerations: None Admit Comment: at 41.2 wks here for IOL. Pt doing well this morning, c/o some irregular contractions. Denies SROM or bleeding. GBS negative. VE stretchy3/ 50/ -3, vtx. Plan for Routine Pitocin to induce labor, AROM with cervical change. Pt is considering an epidural for pain. Attending MD is Dr Raymundo. PLANS FOR LABOR AND DELIVERY Labor and Delivery: None Pain Management: Medications Feeding Preference: Formula Benefit of Breast Feed Discussed: Yes Circumcision: N/A INFORMED CONSENT Assignment: Rox Raymundo MD Signature: with User ID: [email or web address] : with User ID: [email or web address]
[2018-10-26] MEDS ORDERED: OXYTOCIN/NORMAL SALINE 20 UNIT/1,000 ML RTUINJ ONE ×2 (10:42→17:54)
[2018-10-26 11:04] LABS: ABSOLUTE EOSINOPHILS # (AUTO) 0.1 10^3/uL (0.0-0.6); ABSOLUTE LYMPHOCYTES (AUTO) 1.4 10^3/uL (0.5-4.7); ABSOLUTE MONOCYTES (AUTO) 0.4 10^3/uL (0.1-1.4); ABSOLUTE NEUT (AUTO) 4.7 10^3/uL (1.7-8.2); BASOPHILS % (AUTO) 0.3 % (0-2); EOSINOPHILS % (AUTO) 1.1 % (0-6); HEMOGLOBIN 11.9 g/dL (12.0-15.5); LYMPHOCYTES % (AUTO) 20.8 % (13-45); MEAN CORPUSCULAR HGB CONC 33.9 g/dL (32.0-36.0); MEAN CORPUSCULAR VOLUME 89 fl (80-97); PLATELET COUNT 189 10^3/uL (150-450); RED BLOOD COUNT 3.95 10^6/uL (3.72-5.28); RED CELL DISTRIBUTION WIDTH 15.5 % (11.5-14.0); SEGMENTED NEUTROPHILS % (AUTO) 71.8 % (42-78); TOTAL CELLS COUNTED % (AUTO) 100 %; WHITE BLOOD COUNT 6.5 10^3/uL (4.0-10.5)
[2018-10-26 11:07] LABS: APPEARANCE,URINE SLIGHTLY-CLOUDY; BILIRUBIN,URINE NEGATIVE (NEGATIVE); COLOR,URINE YELLOW; GLUCOSE, URINE NEGATIVE (NEGATIVE); KETONES,URINE NEGATIVE (NEGATIVE); LEUKOCYTE ESTERASE,URINE TRACE (NEGATIVE); NITRITE,URINE NEGATIVE (NEGATIVE); PROTEIN,URINE NEGATIVE (NEGATIVE); URINE SPECIFIC GRAVITY 1.008; UROBILINOGEN,URINE NEGATIVE mg/dL (<2.0)
[2018-10-26 11:30] LABS: URINE AMPHETAMINES SCREEN NEGATIVE; URINE BARBITURATES SCREEN NEGATIVE; URINE BENZODIAZEPINES SCREEN NEGATIVE; URINE COCAINE SCREEN NEGATIVE; URINE MARIJUANA (THC) SCREEN NEGATIVE; URINE METHADONE SCREEN NEGATIVE; URINE PHENCYCLIDINE SCREEN NEGATIVE
[2018-10-26] MEDS ORDERED: MISOPROSTOL 0.2 MG TABLET ONE (12:22)
[2018-10-26] MEDS ORDERED: LIDOCAINE 1% INJ-PF (10 MG/ML) 30 ML SDV ONE (12:22)
[2018-10-26] MEDS ORDERED: FENTANYL/BUPIVACAINE/NS/PF 300 MCG/150 ML RTUINJ EPI ONE (14:31)
[2018-10-26] MEDS ORDERED: EPHEDRINE SULFATE INJ 50 MG/1 ML AMPULE ONE (14:31)
[2018-10-26] MEDS ORDERED: BUPIVACAINE HCL 0.25 % INJ/PF (2.5 MG/1 ML) 30 ML VIAL ONE (14:31)
--- NOTE | 2018-10-26 14:37 | L&D Progress Notes ---
PROGRESS NOTES Datetime Report Generated by CPN: 10/26/2018 14:37 PROGRESS NOTE Impression: Reassuring Heart Rate Procedures: Sterile Vag Exam Plan: Continue Present Management; Induction Vital Signs : Reviewed; Within Normal Limits Comment: IOL at 41 wks 2 days. Pitocin infusing. Pt becoming uncomfortable. GBS negative. VE 5-//-2 Pt desires an epidural. Continue Pitocin and anticipate VAGINAL EXAM Dilatation: 5-6 Dilatation: 3 Effacement: 90 Effacement: 50 Station: -2 Station: -3 Contractions: q 2-3 Contractions: rare LAST VAGINAL EXAM-NURSING Dilitation: 5.5 Dilitation: 3.0 Effacement: 90 Effacement: 50 Station: -2 Station: -2 Contractions: irritibility MEMBRANES Membranes: Intact Membranes: Intact FETUS A FHR - Baseline: 125 Monitoring: External US Variability: Moderate 6-25bpm Accelerations: 15X15 Decelerations: None SIGNATURE SIGNATURE: [id number];[id number];[id number] SIGNATURE: [id number];[id number] SIGNATURE: [id number] SIGNATURE: [id number] Assignment: Khushbu Hanson MD Signature: with User ID: [email or web address] : with User ID: [email or web address]
[2018-10-26] MEDS ORDERED: PHENYLEPHRINE HCL INJ/PF 10 MG/1 ML SDV ONE (14:45)
[2018-10-26] MEDS ORDERED: FENTANYL CITRATE INJ/PF 100 MCG/2 ML AMPUL ONE (14:45)
[2018-10-26] MEDS ORDERED: LIDOCAINE 1.5%/EPINEPHRINE INJ-PF 30 ML SDV ONE (14:45)
--- NOTE | 2018-10-26 15:31 | L&D Progress Notes ---
PROGRESS NOTES Datetime Report Generated by CPN: 10/26/2018 15:31 PROGRESS NOTE Impression: Normal Progression of Labor; Reassuring Heart Rate Procedures: Artificial ROM; Sterile Vag Exam Plan: Continue Present Management; Induction Vital Signs : Reviewed; Within Normal Limits Comment: Pt comfortable with the epidural. Pitocin infusing. VE /-2 AROM w/ moderate meconium noted. Position changes encourged. Anticipate . GBS negative Attending MD is Dr Gonzalez VAGINAL EXAM Dilatation: 7 Effacement: 90 Station: -2 Contractions: q2 Dilitation: 7.0 Effacement: 90 Station: -2 MEMBRANES Membranes: Ruptured Amniotic Fluid Color: Meconium, Heavy FETUS A FHR - Baseline: 125 Variability: Moderate 6-25bpm Accelerations: 15X15 Decelerations: Early FETUS C SIGNATURE: [id number];[id number];[id number] Assignment: Khushbu Hanson MD Signature: with User ID: [email or web address] : with User ID: [email or web address]
[2018-10-26] MEDS ORDERED: DIPH/PERTUSS(ACELL)/TETANUS VAC/PF 0.5 ML SYR (>=10YO) IM PRN (16:51)
[2018-10-26] MEDS ORDERED: ZOLPIDEM TARTRATE 5 MG TABLET PO PRN (16:51)
[2018-10-26] MEDS ORDERED: MEASLES,MUMPS&RUBELLA VACC/PF 0.5 ML VIAL SUBCUT PRN (16:51)
[2018-10-26] MEDS ORDERED: BENZOCAINE/MENTHOL AEROSOL SPRAY 56 ML TOP PRN (16:51)
[2018-10-26] MEDS ORDERED: ACETAMINOPHEN WITH CODEINE #3 TABLET PO PRN (16:51)
[2018-10-26] MEDS ORDERED: DIBUCAINE 1% OINTMENT 28 GM TP PRN (16:51)
[2018-10-26] MEDS ORDERED: ACETAMINOPHEN WITH CODEINE #3 TABLET ONE (17:47)
--- NOTE | 2018-10-26 19:13 | Delivery Summary ---
Del Sum A-C Datetime Report Generated by CPN: 10/26/2018 19:12 DELIVERY PERSONNEL DELIVERY PERSONNEL: [id number] Delivery Doctor:: Ekaterina Langston CNM Labor and Delivery Nurse:: Sandy Conroy RNstock layer Nurse:: Cara Mane RN Nursery Nurse:: BLESSING Nicholsonub Tech/ENTRY LEVEL FINANCIAL ANALYST: Skye Lopez CNA II MATERNAL INFORMATION Medications After Delivery: Pitocin Drip 20 Units/1000ml NSS; Cytotec 1000mcg Per Rectum/Vagina Meds After Delivery Comment: Pitocin 20 units/1000ml NSS Maternal Complications: None Provider Comments: of baby girl, NC x 2, easily reduced, bulb suctioned, crying and in stable condition. Placed on pts abdoman. Cord clamped at cut after 90 seconds. Cord blood obtained. Perineum intact. Small periurethral laceration noted, hemostatic. PLacenta S/C/I. FF w/ decreased lochia. IV Pitocin infusing. Mother and baby in stable condition, plans to breastfeed. EBL 100. Attending MD is Dr Gonzalez. LABOR SUMMARY EDC: 10/17/2018 00:00 No. Babies in Womb: 1 Attempted: No Labor Anesthesia: Epidural LABOR INFORMATION Reason for Induction: Post Dates Onset of Labor: 10/26/2018 14:22 Complete Dilatation: 10/26/2018 16:19 Oxytocin: Induction Group B Beta Strep: Negative Steroids Given: None Reason Steroids Not Administered: Not Applicable MEMBRANES Membranes Rupture Method: Artificial Rupture of Membranes: 10/26/2018 15:24 Length of Rupture (hr): 1.28 Amniotic Fluid Color: Moderate Meconium Amniotic Fluid Amount: Scant Amniotic Fluid Odor: Normal STAGES OF LABOR Stage 1 hr: 1 Stage 1 min: 57 Stage 2 hr: 0 Stage 2 min: 22 Stage 3 hr: 0 Stage 3 min: 3 Total Time in Labor hr: 2 Total Time in Labor min: 22 VAGINAL DELIVERY Episiotomy: None Laceration #1: None Laceration Extension #1: N/A Laceration Repair: Not Applicable Sponge Count Correct: N/A CSECTION DELIVERY Primary Indication: N/A Secondary Indication: N/A CSection Incidence: N/A Labor: N/A Elective: N/A CSection Incision: N/A BABY A INFORMATION Delivery Date/Time: 10/26/2018 16:41 Method of Delivery: Vaginal Born in Route : No : N/A Forceps: N/A Vacuum Extraction: N/A Shoulder Dystocia : No PRESENTATION/POSITION BABY A Presentation: Cephalic Cephalic Presentation: Vertex Vertex Position: Right Occipital Anterior Breech Presentation: N/A PLACENTA INFORMATION BABY A Placenta Delivery Time : 10/26/2018 16:44 Placenta Method of Delivery: Spontaneous Placenta Status: Delivered SCORES BABY A Heart Rate 1 min: >100 bpm Resp Effort 1 min: Good Cry Reflex Irritability 1 min: Cough or Sneeze or Pulls Away Muscle Tone 1 min: Active Motion Color 1 min: Blue/Pale Resuscitation Effort 1 min: Tactile Stimulation SCORE 1 MIN: 8 Heart Rate 5 min: >100 bpm Resp Effort 5 min: Good Cry Reflex Irritability 5 min: Cough or Sneeze or Pulls Away Muscle Tone 5 min: Active Motion Color 5 min: Body [place], Extremities Blue Resuscitation Effort 5 min: Tactile Stimulation SCORE 5 MIN: 9 INFANT INFORMATION BABY A Gestational Age at Delivery: 41.2 Gestational Status: Late Term- 41- 41.6 Weeks Outcome : Liveborn Infant Condition : Stable Infant Sex: Female IDENTIFICATION BABY A Infant Verification Date/Time: 10/26/2018 16:55 ID Band Number: [id number] Mother's Name Verified: Yes Infant RN Verifying Infant: J, RN and C.Emmys, RN WEIGHT/LENGTH BABY A Birthweight (gm): 3010 Infant Weight (lb): 6 Infant Weight (oz): 10 Infant Length (in): 20.00 Length (cm): 50.80 CORD INFORMATION BABY A No. Cord Vessels: 3 Nuchal Cord : Around Neck x2, Loose Cord Blood Taken: Yes-For Eval (Mom's Blood Type - or O+) Suction: None ASSESSMENT BABY A Complications: None Physical Findings at Delivery: Within Normal Limits Infant Respirations: Appears Normal Skin to Skin: No Farm Equipment Technician/ALS Called : No Care By: Terry Sultana RN Transferred To: Remains with Mother SIGNATURES Assignment: Khushbu Hanson MD Signature: with User ID: [email or web address] : with User ID: [email or web address]
[2018-10-26] MEDS: DOCUSATE SODIUM 100 MG CAPSULE PO SCH (20:12)
[2018-10-26] MEDS: FERROUS SULFATE 325 MG TABLET PO SCH (20:17)
[2018-10-26] MEDS: IBUPROFEN 800 MG TABLET PO SCH (21:57)
[2018-10-27] MEDS: IBUPROFEN 800 MG TABLET PO SCH ×3 (06:41→21:00)
[2018-10-27 07:48] LABS: HEMATOCRIT 27.8 % (36.0-47.0); MEAN CORPUSCULAR HEMOGLOBIN 30.1 pg (27.0-33.4); MEAN CORPUSCULAR HGB CONC 33.7 g/dL (32.0-36.0); MEAN CORPUSCULAR VOLUME 89 fl (80-97); PLATELET COUNT 182 10^3/uL (150-450); RED BLOOD COUNT 3.12 10^6/uL (3.72-5.28); RED CELL DISTRIBUTION WIDTH 15.3 % (11.5-14.0); WHITE BLOOD COUNT 8.6 10^3/uL (4.0-10.5)
[2018-10-27 07:51] LABS: HEMOGLOBIN 9.4 g/dL (12.0-15.5)
[2018-10-27] MEDS: DOCUSATE SODIUM 100 MG CAPSULE PO SCH ×2 (09:24→18:03)
[2018-10-27] MEDS: FERROUS SULFATE 325 MG TABLET PO SCH ×2 (09:24→18:03)
[2018-10-27] MEDS: PRENATAL VITAMIN W DHA CAPSULE PO SCH (09:24)
[2018-10-27] MEDS: SENNOSIDES/DOCUSATE 8.6-50 MG 1 EACH TABLET PO SCH (09:24)
--- NOTE | 2018-10-27 14:13 | PDOC PROGRESS REPORT ---
Subjective-OB Progress Note for:: 10/27/18 Subjective: Pt doing well, no concerns. She reports light bleeding, reg diet and voiding without difficulty. No concerns. Physical Exam (OB) Vital Signs: Temp Pulse Resp BP Pulse Ox 98.7 F 85 16 129/69 H 91 L 10/27/18 07:47 10/27/18 07:47 10/27/18 07:47 10/27/18 07:47 10/27/18 07:47 Intake & Output 10/26/18 10/27/18 10/28/18 06:59 06:59 06:59 Intake Total 1600 Balance 1600 Weight 106.3 kg - Lochia Lochia Amount: Small 10-25 ml Lochia Color: Rubra/Red - Abdomen Description: Tender, Soft Hernia Present: No Fundal Description: Firm, Midline Fundal Height: u/u - u/2 Objective-Diagnostic Laboratory: 10/27/18 07:03 10/26/18 10/27/18 10:46 07:03 WBC 8.6 RBC 3.12 L Hgb 9.4 L D Hct 27.8 L MCV 89 MCH 30.1 MCHC 33.7 RDW 15.3 H Plt Count 182 Blood Type O POSITIVE Antibody Screen NEGATIVE Assessment and Plan(PN) - Assessment and Plan (1) Delivery normal Is this a current diagnosis for this admission?: Yes (2) Gestational diabetes Qualifiers: Gestational diabetes mellitus control: unspecified Trimester: third trimester Qualified Code(s): O24.419 - Gestational diabetes mellitus in , unspecified control Is this a current diagnosis for this admission?: Yes (3) Oligohydramnios antepartum Qualifiers: Fetus number: single or unspecified fetus Qualified Code(s): O41.00X0 - Oligohydramnios, unspecified trimester, not applicable or unspecified Is this a current diagnosis for this admission?: Yes (4) hemorrhage Qualifiers: hemorrhage type: third-stage Qualified Code(s): O72.0 - Third- stage hemorrhage Is this a current diagnosis for this admission?: Yes - Time Spent with Patient Time with patient: Less than 15 minutes Medications reviewed and adjusted accordingly: Yes - Disposition Anticipated Discharge: Home Within: within 24 hours
[2018-10-28] MEDS: IBUPROFEN 800 MG TABLET PO SCH ×2 (06:50→14:24)
[2018-10-28 08:52] VITALS: BP 102/69
--- NOTE | 2018-10-28 10:24 | PDOC PROGRESS REPORT ---
Subjective-OB Progress Note for:: 10/28/18 Subjective: Doing well, ambulating, bottle feeding, eating well Physical Exam (OB) Vital Signs: Temp Pulse Resp BP Pulse Ox 98.2 F 86 15 102/69 98 10/28/18 07:58 10/28/18 07:58 10/28/18 07:58 10/28/18 07:58 10/28/18 07:58 Intake & Output 10/27/18 10/28/18 10/29/18 06:59 06:59 06:59 Intake Total 1600 800 Balance 1600 800 Weight 106.3 kg - PIH/Pre-Eclampsia Headache: Absent Epigastric Pain: No Visual Changes: No - Lochia Lochia Amount: Scant < 10 ml Lochia Color: Rubra/Red - Abdomen Description: Tender, Soft Hernia Present: No Fundal Description: Firm, Midline Fundal Height: u/u - u/2 Objective-Diagnostic Laboratory: 10/27/18 07:03 Assessment and Plan(PN) - Assessment and Plan (1) Oligohydramnios antepartum Qualifiers: Fetus number: single or unspecified fetus Qualified Code(s): O41.00X0 - Oligohydramnios, unspecified trimester, not applicable or unspecified Is this a current diagnosis for this admission?: Yes (2) Delivery normal Is this a current diagnosis for this admission?: Yes (3) hemorrhage Qualifiers: hemorrhage type: third-stage Qualified Code(s): O72.0 - Third- stage hemorrhage Is this a current diagnosis for this admission?: Yes (4) Gestational diabetes Qualifiers: Gestational diabetes mellitus control: diet-controlled Trimester: third trimester Qualified Code(s): O24.410 - Gestational diabetes mellitus in , diet controlled Is this a current diagnosis for this admission?: Yes - Time Spent with Patient Time with patient: Less than 15 minutes Medications reviewed and adjusted accordingly: Yes - Disposition Anticipated Discharge: Home Within: within 24 hours
--- NOTE | 2018-10-28 10:28 | PDOC DISCHARGE SUMMARY ---
Final Diagnosis Discharge Date: 10/28/18 - Final Diagnosis (1) Oligohydramnios antepartum Is this a current diagnosis for this admission?: Yes (2) Delivery normal Is this a current diagnosis for this admission?: Yes (3) hemorrhage Is this a current diagnosis for this admission?: Yes (4) Gestational diabetes Is this a current diagnosis for this admission?: Yes Discharge Data - Discharge Medication Prescriptions: Ferrous Sulfate [Feosol 325 mg Tablet] 325 mg PO BID #60 tablet Home Medications: Ferrous Sulfate [Feosol 325 mg Tablet] 325 mg PO BID #60 tablet 10/28/18 Vit/Dha [ Multi + Dha Capsule] 1 cap PO DAILY capsule 10/28/18 Gestational Age: 41.2 Reason(s) for Admission: Induction of Labor, Gestional Diabetes, Advanced Maternal Age Procedures: NST, Ultrasound Intrapartum Procedure(s): Spontaneous Vaginal Delivery - [place] Data Baby 1 Female at 1 minute: 8 at 5 minutes: 9 Weight: 3.005 kg Home with Mother: Yes Complications: No - Diagnosis Test Laboratory: Temp Pulse Resp BP Pulse Ox 98.2 F 86 15 102/69 98 10/28/18 07:58 10/28/18 07:58 10/28/18 07:58 10/28/18 07:58 10/28/18 07:58 10/26/18 10/26/18 10/27/18 10:25 10:46 07:03 RBC 3.95 3.12 L Hgb 11.9 L 9.4 L D Hct 35.0 L 27.8 L Urine Opiates Screen NEGATIVE - Discharge information/Instructions Discharge Activity: Activity As Tolerated, No Lifting Over 10 Pounds, No Lifting/Push/Pulling, Pelvic Rest Discharge Diet: As Tolerated, Regular Disposition: HOME, SELF-CARE Follow up with: [facility] in: 2, Weeks
[2018-10-28] MEDS: DOCUSATE SODIUM 100 MG CAPSULE PO SCH (11:19)
[2018-10-28] MEDS: SENNOSIDES/DOCUSATE 8.6-50 MG 1 EACH TABLET PO SCH (11:19)
[2018-10-28] MEDS: PRENATAL VITAMIN W DHA CAPSULE PO SCH (11:19)
[2018-10-28] MEDS: FERROUS SULFATE 325 MG TABLET PO SCH (11:19)
== END 2018-10-28 15:11 | disposition home or self-care (01) | DRG 806 ==
LOC: LR 09:57 → 2S 19:00
PROVIDERS: ADMIT Obstetrics & Gynecology; ATTEND Obstetrics & Gynecology
PROC: 10E0XZZ Delivery of Products of Conception, External Approach (ICD-10-PCS; principal; 2018-10-26)
DX: O48.0 Post-term pregnancy (principal); O41.03X0 Oligohydramnios, third trimester, not applicable or unspecified; Z37.0 Single live birth; O24.420 Gestational diabetes mellitus in childbirth, diet controlled; O69.81X0 Labor and delivery complicated by cord around neck, without compression, not applicable or unspecified; O77.0 Labor and delivery complicated by meconium in amniotic fluid; O70.0 First degree perineal laceration during delivery; Z3A.41 41 weeks gestation of pregnancy
CPT/HCPCS: 36415; 80307; 81005; 85025; 85027; 86592; 86850; 86900; 86901; J2370; J2590; J3010; J3490

== ENCOUNTER 2018-10-30 18:24 | Emergency (ER) | payer BC ==
--- NOTE | 2018-10-30 19:21 | ER Document Report ---
ED Medical Screen (RME) - General Chief Complaint: Low Back Pain Stated Complaint: HEAD AND BACK PAIN Time Seen by Provider: 10/30/18 19:14 Notes: 38-year-old female patient had a vaginal delivery 4 days ago. She states that since this morning whenever she is walking about quickly and goes to sit down she develops pressure in the back of her head, her back, her chest. It is a throbbing type pressure. She has never tried standing back up to see if it goes away. She does not notice it when she is up normally walking around it is only when she sits down. She states that it has been occurring off and on every once in a while but his gotten to become a consistent persistent problem since this morning. I have greeted and performed a rapid initial assessment of this patient. A comprehensive ED assessment and evaluation of the patient, analysis of test results and completion of the medical decision making process will be conducted by additional ED providers. TRAVEL OUTSIDE OF THE [place] IN LAST 30 DAYS: No - Related Data Allergies/Adverse Reactions: No Known Allergies Allergy (Verified 10/30/18 19:13) Past Medical History - Social History Chew tobacco use (# tins/day): No Frequency of alcohol use: None Drug Abuse: None Endocrine Medical History: Reports: Hx Diabetes Mellitus Type 2 - gestational diabetes Renal/ Medical History: Denies: Hx Peritoneal Dialysis GI Medical History: Reports: Hx Gastroesophageal Reflux Disease Psychiatric Medical History: Reports: Hx Depression Past Surgical History: Reports: Hx Genitourinary Surgery - D&C - Immunizations Hx Diphtheria, Pertussis, Tetanus Vaccination: Yes - declined Physical Exam - Vital signs Vitals: Temp Pulse Resp BP Pulse Ox 98.3 F 84 16 130/82 H 99 10/30/18 18:50 10/30/18 18:50 10/30/18 18:50 10/30/18 18:50 10/30/18 18:50 Course - Vital Signs Vital signs: Temp Pulse Resp BP Pulse Ox 98.3 F 84 16 130/82 H 99 10/30/18 18:50 10/30/18 18:50 10/30/18 18:50 10/30/18 18:50 10/30/18 18:50 Doctor's Discharge - Discharge Referrals: HERMES VILLEDA MD [Primary Care Provider] - Follow up as needed
[2018-10-30 19:38] LABS: HEMATOCRIT 28.3 % (36.0-47.0); HEMOGLOBIN 9.5 g/dL (12.0-15.5); MEAN CORPUSCULAR HEMOGLOBIN 30.3 pg (27.0-33.4); MEAN CORPUSCULAR HGB CONC 33.7 g/dL (32.0-36.0); MEAN CORPUSCULAR VOLUME 90 fl (80-97); PLATELET COUNT 230 10^3/uL (150-450); RED BLOOD COUNT 3.15 10^6/uL (3.72-5.28); RED CELL DISTRIBUTION WIDTH 15.4 % (11.5-14.0)
[2018-10-30 20:00] LABS: ABSOLUTE LYMPHOCYTES# (MANUAL) 1.9 10^3/uL (0.5-4.7); ABSOLUTE MONOCYTES # (MANUAL) 0.2 10^3/uL (0.1-1.4); ABSOLUTE NEUTROPHILS# (MANUAL) 3.6 10^3/uL (1.7-8.2); BAND NEUTROPHILS % (MANUAL) 2 % (3-5); BASOPHILS % (MANUAL) 0 % (0-2); EOSINOPHILS % (MANUAL) 4 % (0-6); LYMPHOCYTES % (MANUAL) 32 % (13-45); MONOCYTES % (MANUAL) 4 % (3-13); SEGMENTED NEUTROPHILS % (MAN) 58 % (42-78); TOTAL CELLS COUNTED 100
[2018-10-30 20:03] LABS: ANISOCYTOSIS SLIGHT; BURR CELLS SLIGHT; OVALOCYTES 2+; PLATELET COMMENT ADEQUATE; POIKILOCYTOSIS 1+; ROULEAUX SLIGHT; TEAR DROP CELLS 1+; TOXIC GRANULATION 1+; TOXIC VACUOLATION PRESENT
[2018-10-30] MEDS ORDERED: NORMAL SALINE 1000 ML 1,000 ML IV ONE (20:09)
[2018-10-30 20:10] LABS: CREATINE KINASE MB 0.34 ng/mL (<4.55)
[2018-10-30 20:11] LABS: TROPONIN I < 0.012 ng/mL
--- NOTE | 2018-10-30 20:15 | ER Document Report ---
ED General - General Chief Complaint: Low Back Pain Stated Complaint: HEAD AND BACK PAIN Time Seen by Provider: 10/30/18 19:14 Notes: Patient is a 38-year-old female that comes to the emergency department for chief complaint of episodes that have been since this morning where she would be walking, sit down, and then feel a pulsating at the back of her head, and her lower back, and in the center of her chest. This lasts for about 10 seconds and then resolves. She states she has noticed that several times throughout today and she wants to be evaluated. She does state that she has been experiencing this intermittently for over a year but had not noticed it in a while. She is 4 days status post spontaneous vaginal delivery, she states she did have a lot of bleeding but did not get transfused, she denies any complications. She is bot tlefeeding. She is on iron and vitamins. She denies smoking, alcohol, recreational drugs. Past medical history of D&C. She denies any current symptoms. TRAVEL OUTSIDE OF THE [place] IN LAST 30 DAYS: No - Related Data Allergies/Adverse Reactions: No Known Allergies Allergy (Verified 10/30/18 19:13) Past Medical History - General Information source: Patient - Social History Smoking Status: Never Smoker Chew tobacco use (# tins/day): No Frequency of alcohol use: None Drug Abuse: None Lives with: Family Family History: Reviewed & Not Pertinent Patient has suicidal ideation: No Patient has homicidal ideation: No Endocrine Medical History: Reports: Hx Diabetes Mellitus Type 2 - gestational diabetes Renal/ Medical History: Denies: Hx Peritoneal Dialysis GI Medical History: Reports: Hx Gastroesophageal Reflux Disease Psychiatric Medical History: Reports: Hx Depression Past Surgical History: Reports: Hx Genitourinary Surgery - D&C - Immunizations Hx Diphtheria, Pertussis, Tetanus Vaccination: Yes - declined Review of Systems - Review of Systems Constitutional: No symptoms reported EENT: No symptoms reported Cardiovascular: See HPI Respiratory: No symptoms reported Gastrointestinal: No symptoms reported Genitourinary: No symptoms reported Female Genitourinary: See HPI Musculoskeletal: See HPI Skin: No symptoms reported Hematologic/Lymphatic: No symptoms reported Neurological/Psychological: See HPI Physical Exam - Vital signs Vitals: Temp Pulse Resp BP Pulse Ox 98.3 F 84 16 130/82 H 99 10/30/18 18:50 10/30/18 18:50 10/30/18 18:50 10/30/18 18:50 10/30/18 18:50 - Notes Notes: GENERAL: Alert, interacts well. No acute distress. HEAD: Normocephalic, atraumatic. EYES: Pupils equal, round, and reactive to light. Extraocular movements intact. ENT: Oral mucosa moist, tongue midline. Oropharynx unremarkable. Airway patent. Nares patent, no nasal septal hematoma, TM's intact. NECK: Full range of motion. Supple. Trachea midline. LUNGS: Clear to auscultation bilaterally, no wheezes, rales, or rhonchi. No respiratory distress. HEART: Regular rate and rhythm. No murmur ABDOMEN: Soft, non-tender. Non-distended. Bowel sounds present in all 4 quadrants. GENITOURINARY: Deferred EXTREMITIES: Moves all 4 extremities spontaneously. No edema, normal radial and dorsalis pedis pulses bilaterally. No cyanosis. BACK: no cervical, thoracic, lumbar midline tenderness. Mild tenderness over the right paracervical muscles. No saddle anesthesia, normal distal neurovascular exam. NEUROLOGICAL: Alert and oriented x3. Normal speech. [cranial nerves II through XII grossly intact]. PSYCH: Normal affect, normal mood. SKIN: Warm, dry, normal turgor. No rashes or lesions noted. Course - Re-evaluation Re-evalutation: Patient currently with no symptoms. Vital signs are unremarkable. Symptoms have been going on for more than 12 hours. EKG with no concerning findings, chest x-ray unremarkable, CBC shows anemia at 9.5 hemoglobin, chemistry unremarkable. Urinalysis reportedly contaminated, patient states she accidentally contaminated this, she is still having some intermittent light bleeding. Patient is symptomatic after IV fluids. Patient has been having these symptoms for a long time. I discussed all results with patient in detail. She is smiling, well-appearing, states she is satisfied with this and she wants to follow-up with primary care. Discussed possible cardiology workup because of her repeated symptoms, patient states that she will follow-up with primary care first. Discussed return precautions. Patient states understanding and agreement. Blood pressure rechecked and unremarkable. Patient stable at time of discharge. - Vital Signs Vital signs: Temp Pulse Resp BP Pulse Ox 98.1 F 81 16 126/81 H 99 10/30/18 23:17 10/30/18 23:17 10/30/18 23:17 10/30/18 23:17 10/30/18 23:17 - Laboratory Result Diagrams: 10/30/18 19:24 10/30/18 20:15 Laboratory results interpreted by me: 10/30/18 10/30/18 10/30/18 19:24 20:15 20:15 RBC 3.15 L Hgb 9.5 L Hct 28.3 L RDW 15.4 H Band Neutrophils % 2 L Chloride 110 H Total Protein 5.6 L Albumin 2.8 L Urine Protein 100 H Urine Blood LARGE H Urine Urobilinogen 2.0 H Ur Leukocyte Esterase SMALL H Urine Ascorbic Acid 40 H - EKG Interpretation by Me Additional EKG results interpreted by me: Per my interpretation EKG shows sinus rhythm at a rate of 80, artifact is present, normal axis, QTC of 443, AL interval difficult to calculate because of artifact. No T wave inversions or ST segment changes in consecutive leads. Discharge - Discharge Clinical Impression: Other symptoms involving respiratory system and chest, Flank pain Headache Qualifiers: Headache type: unspecified Headache chronicity pattern: acute headache Intractability: not intractable Qualified Code(s): R51 - Headache Condition: Stable Disposition: HOME, SELF-CARE Additional Instructions: You have been rehydrated. Your hemoglobin is 9.5. Continue iron. Your workup at this time and evaluation are reassuring. The exact cause of your symptoms is not definite at this time. Follow-up with primary care for additional management. Return if you worsen including fevers, passing out, difficulty breathing, severe headache, or any other concerning or worsening symptoms. Referrals: HERMES VILLEDA MD [Primary Care Provider] - Follow up as needed
[2018-10-30 20:49] LABS: ALANINE AMINOTRANSFERASE 29 U/L (9-52); ALBUMIN 2.8 g/dL (3.5-5.0); ALKALINE PHOSPHATASE 70 U/L (38-126); ASPARTATE AMINO TRANSFERASE 16 U/L (14-36); BILIRUBIN,DIRECT 0.2 mg/dL (0.0-0.4); BILIRUBIN,TOTAL 0.2 mg/dL (0.2-1.3); BLOOD UREA NITROGEN 12 mg/dL (7-20); CALCIUM 8.6 mg/dL (8.4-10.2); CREATINE KINASE 51 U/L (30-135); GLUCOSE 91 mg/dL (75-110); POTASSIUM 4.2 mmol/L (3.6-5.0); TOTAL PROTEIN 5.6 g/dL (6.3-8.2)
--- NOTE | 2018-10-30 20:51 | RADIOLOGY REPORT (SQ) ---
EXAM DESCRIPTION: CHEST SINGLE VIEW COMPLETED DATE/TIME: 10/30/2018 8:30 pm REASON FOR STUDY: chest pain COMPARISON: 06/29/2013 EXAM PARAMETERS: NUMBER OF VIEWS: One view. TECHNIQUE: Single frontal radiographic view of the chest acquired. RADIATION DOSE: NA LIMITATIONS: None. FINDINGS: LUNGS AND PLEURA: No opacities, masses or pneumothorax. No pleural effusion. MEDIASTINUM AND HILAR STRUCTURES: No masses. Contour normal. HEART AND VASCULAR STRUCTURES: Heart normal in size. Normal vasculature. BONES: No acute findings. HARDWARE: None in the chest. OTHER: No other significant finding. IMPRESSION: NO ACUTE RADIOGRAPHIC FINDING IN THE CHEST. TECHNICAL DOCUMENTATION: JOB ID: [id number] [employer]- All Rights Reserved Reading location - IP/workstation name: [email or web address]
[2018-10-30 20:54] LABS: ANION GAP 5 (5-19); CARBON DIOXIDE 24 mmol/L (22-30); CHLORIDE 110 mmol/L (98-107)
[2018-10-30] MEDS ORDERED: MINERAL OIL 30 ML UDCUP PR ONE (21:23)
[2018-10-30 21:44] LABS: APPEARANCE,URINE CLOUDY; BILIRUBIN,URINE NEGATIVE (NEGATIVE); COLOR,URINE YELLOW; GLUCOSE, URINE NEGATIVE (NEGATIVE); KETONES,URINE NEGATIVE (NEGATIVE); LEUKOCYTE ESTERASE,URINE SMALL (NEGATIVE); NITRITE,URINE NEGATIVE (NEGATIVE); PROTEIN,URINE 100 mg/dL (NEGATIVE)
--- NOTE | 2018-10-30 21:59 | EKG REPORT ---
SEVERITY:- OTHERWISE NORMAL ECG - SINUS RHYTHM : Confirmed by: Saad Dalton MD 30-Oct-2018 21:58:50
[2018-10-30 23:18] VITALS: BP 126/81
== END 2018-10-30 23:17 | disposition home or self-care (01) ==
LOC: ER 18:24
DX: O90.9 Complication of the puerperium, unspecified (principal); M54.5 Low back pain; R51 Headache; R68.89 Other general symptoms and signs
CPT/HCPCS: 93005; 99284; 36415; 82553; 82550; 85025; 80053; 81001; 84484; 71045; 93010; J7030

== ENCOUNTER 2018-12-02 09:04 | Emergency (ER) | payer BC ==
[2018-12-02 09:11] VITALS: BP 126/87
[2018-12-02] MEDS ORDERED: IBUPROFEN 800 MG TABLET PO ONE (09:23)
--- NOTE | 2018-12-02 09:23 | ER Document Report ---
HPI - HPI Patient complains to provider of: Neck pain Time Seen by Provider: 12/02/18 09:15 Onset: This morning Onset/Duration: Sudden Quality of pain: Achy Pain Level: 4 Context: Patient presents emergency department with complaints of left-sided neck pain. Patient reports she had a cold recently and woke up this morning with her neck sore. Denies trauma. Denies fever vomiting diarrhea. Denies thyroid issues. Associated Symptoms: None Exacerbated by: Denies Relieved by: Denies Similar symptoms previously: No Recently seen / treated by doctor: No - REPRODUCTIVE Reproductive: DENIES: : Past Medical History - General Information source: Patient Last Menstrual Period: - Social History Smoking Status: Unknown if Ever Smoked Cigarette use (# per day): No Frequency of alcohol use: Occasional Drug Abuse: None Lives with: Family Family History: Reviewed & Not Pertinent Patient has suicidal ideation: No Patient has homicidal ideation: No Endocrine Medical History: Reports: Hx Diabetes Mellitus Type 2 - gestational diabetes Renal/ Medical History: Denies: Hx Peritoneal Dialysis GI Medical History: Reports: Hx Gastroesophageal Reflux Disease Psychiatric Medical History: Reports: Hx Depression Past Surgical History: Reports: Hx Genitourinary Surgery - D&C - Immunizations Hx Diphtheria, Pertussis, Tetanus Vaccination: Yes - declined Vertical Provider Document - CONSTITUTIONAL Agree With Documented VS: Yes Exam Limitations: No Limitations General Appearance: WD/WN, No Apparent Distress - nontoxic looking - INFECTION CONTROL TRAVEL OUTSIDE OF THE [place] IN LAST 30 DAYS: No - HEENT HEENT: Atraumatic, Normocephalic. negative: Pharyngeal Exudate, Pharyngeal Tenderness, Pharyngeal Erythema, Tympanic Membrane Red, Tympanic Membrane Bulging - NECK Neck: Normal Inspection, Supple, Lymphadenopathy-Left - lowerr cervical - RESPIRATORY Respiratory: Breath Sounds Normal, No Respiratory Distress, Chest Non-Tender - GI/ABDOMEN Gastrointestinal: Abdomen Soft, Abdomen Non-Tender - BACK Back: Normal Inspection - MUSCULOSKELETAL/EXTREMETIES Musculoskeletal/Extremeties: MARILIA MANCUSO - NEURO Level of Consciousness: Awake, Alert, Appropriate Motor/Sensory: No Motor Deficit - DERM Integumentary: Warm, Dry, No Rash Adult Front & Back Diagram: 1 - slight swelling to left lower cervical lymph node, no erythema no warmth slightly tender to touch Notes: Good distal movement and sensation no numbness or tingling no vertebral tenderness turns head left to right without complaints or problems. Course - Re-evaluation Re-evalutation: 12/02/18 09:30 Patient instructed on lymph nodes. Patient was instructed to return to the emergency department should the area become swollen red painful. Dictation of this chart was performed using voice recognition software; therefore, there may be some unintended grammatical errors. - Vital Signs Vital signs: Temp Pulse Resp BP Pulse Ox 98.8 F 82 18 126/87 H 96 12/02/18 09:10 12/02/18 09:10 12/02/18 09:10 12/02/18 09:10 12/02/18 09:10 Discharge - Discharge Clinical Impression: Neck pain, Swelling of lymph node Condition: Stable Disposition: HOME, SELF-CARE Instructions: Use of Wsst-[id number]-[id number] Ibuprofen ([facility]) Additional Instructions: *You have been evaluated for neck pain *Take ibuprofen as indicated *Follow up with a primary care provider within 5 days *Return to ED for worsening condition, changes, needs *Return to ED if not better in 24 hours Monitor your blood pressure. Your blood pressure was elevated today. This may be because you were anxious, in pain or because you need medication. It is important to follow up with your primary care provider for full evaluation. Forms: Elevated Blood Pressure Referrals: HERMES VILLEDA MD [Primary Care Provider] - Follow up in 3-5 days
== END 2018-12-02 09:46 | disposition home or self-care (01) ==
LOC: ER 09:04
DX: M54.2 Cervicalgia (principal); R59.0 Localized enlarged lymph nodes
CPT/HCPCS: 99283

== ENCOUNTER → 2018-12-13 | Outpatient (CLI) | payer BC ==
[2018-12-13 18:20] LABS: FREE T3 3.37 pg/mL (2.77-5.27); FREE T4 (FREE THYROXINE) 1.07 ng/dL (0.78-2.19)
[2018-12-13 18:34] LABS: THYROID STIMULATING HORMONE 0.81 uIU/mL (0.47-4.68)
== END ==
LOC: OD 16:30
PROVIDERS: ATTEND Physician Assistant Surgical
DX: R22.1 Localized swelling, mass and lump, neck (principal)
CPT/HCPCS: 36415; 83519; 84439; 84443; 84481; 86376; 86800

== ENCOUNTER 2018-12-16 13:26 | Emergency (ER) | payer BC ==
--- NOTE | 2018-12-16 14:12 | ER Document Report ---
ED Medical Screen (RME) - General Chief Complaint: Blurred Vision Stated Complaint: BLURRED VISION RIGHT EYE,FACE NUMB Time Seen by Provider: 12/16/18 14:06 Primary Care Provider: AVRIL WATSON PA-C [Primary Care Provider] - Follow up as needed Mode of Arrival: Ambulatory Information source: Patient Notes: 38 years old female nearly 1 month, presents today with right facial numbness difficulty in closing the mouth completely since this morning. She also having vaginal bleeding for the last few days. Also noted elevated blood pressure. 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 TRAVEL OUTSIDE OF THE [place] IN LAST 30 DAYS: No - Related Data Allergies/Adverse Reactions: No Known Allergies Allergy (Verified 12/16/18 13:28) Past Medical History Endocrine Medical History: Reports: Hx Diabetes Mellitus Type 2 - gestational diabetes Renal/ Medical History: Denies: Hx Peritoneal Dialysis GI Medical History: Reports: Hx Gastroesophageal Reflux Disease Psychiatric Medical History: Reports: Hx Depression Past Surgical History: Reports: Hx Genitourinary Surgery - D&C - Immunizations Hx Diphtheria, Pertussis, Tetanus Vaccination: Yes - declined Physical Exam - Vital signs Vitals: Temp Pulse Resp BP Pulse Ox 99.4 F 86 16 143/98 H 98 12/16/18 13:40 12/16/18 13:40 12/16/18 13:40 12/16/18 13:40 12/16/18 13:40 Course - Vital Signs Vital signs: Temp Pulse Resp BP Pulse Ox 99.4 F 86 16 143/98 H 98 12/16/18 13:40 12/16/18 13:40 12/16/18 13:40 12/16/18 13:40 12/16/18 13:40 Doctor's Discharge - Discharge Referrals: AVRIL WATSON PA-C [Primary Care Provider] - Follow up as needed
[2018-12-16 14:53] LABS: ABSOLUTE EOSINOPHILS # (AUTO) 0.1 10^3/uL (0.0-0.6); ABSOLUTE LYMPHOCYTES (AUTO) 1.6 10^3/uL (0.5-4.7); ABSOLUTE MONOCYTES (AUTO) 0.3 10^3/uL (0.1-1.4); BASOPHILS % (AUTO) 0.4 % (0-2); EOSINOPHILS % (AUTO) 2.6 % (0-6); HEMATOCRIT 39.1 % (36.0-47.0); HEMOGLOBIN 13.2 g/dL (12.0-15.5); LYMPHOCYTES % (AUTO) 31.1 % (13-45); MEAN CORPUSCULAR HEMOGLOBIN 29.4 pg (27.0-33.4); MEAN CORPUSCULAR HGB CONC 33.8 g/dL (32.0-36.0); MEAN CORPUSCULAR VOLUME 87 fl (80-97); MONOCYTES % (AUTO) 6.2 % (3-13); PLATELET COUNT 259 10^3/uL (150-450); RED CELL DISTRIBUTION WIDTH 14.2 % (11.5-14.0); SEGMENTED NEUTROPHILS % (AUTO) 59.7 % (42-78); TOTAL CELLS COUNTED % (AUTO) 100 %
[2018-12-16 14:56] LABS: APPEARANCE,URINE SLIGHTLY-CLOUDY; BILIRUBIN,URINE NEGATIVE (NEGATIVE); COLOR,URINE STRAW; GLUCOSE, URINE NEGATIVE (NEGATIVE); KETONES,URINE NEGATIVE (NEGATIVE); LEUKOCYTE ESTERASE,URINE SMALL (NEGATIVE); NITRITE,URINE NEGATIVE (NEGATIVE); PROTEIN,URINE NEGATIVE (NEGATIVE); URINE SPECIFIC GRAVITY 1.005; UROBILINOGEN,URINE NEGATIVE mg/dL (<2.0)
[2018-12-16 15:13] LABS: ALANINE AMINOTRANSFERASE 40 U/L (9-52); ALBUMIN 4.3 g/dL (3.5-5.0); ALKALINE PHOSPHATASE 84 U/L (38-126); ANION GAP 10 (5-19); ASPARTATE AMINO TRANSFERASE 24 U/L (14-36); BILIRUBIN,DIRECT 0.1 mg/dL (0.0-0.4); BILIRUBIN,TOTAL 0.4 mg/dL (0.2-1.3); BLOOD UREA NITROGEN 12 mg/dL (7-20); CALCIUM 9.3 mg/dL (8.4-10.2); CARBON DIOXIDE 25 mmol/L (22-30); CHLORIDE 106 mmol/L (98-107); GLUCOSE 86 mg/dL (75-110); POTASSIUM 4.5 mmol/L (3.6-5.0); SODIUM 141.3 mmol/L (137-145); TOTAL PROTEIN 7.8 g/dL (6.3-8.2)
--- NOTE | 2018-12-16 16:16 | RADIOLOGY REPORT (SQ) ---
EXAM DESCRIPTION: CT HEAD WITHOUT COMPLETED DATE/TIME: 12/16/2018 3:55 pm REASON FOR STUDY: Headache/facial weakness COMPARISON: None. TECHNIQUE: Axial images acquired through the brain without intravenous contrast. Images reviewed wi th bone, brain and subdural windows. Images stored on PACS. All CT scanners at this facility use dose modulation, iterative reconstruction, and/or weight based d osing when appropriate to reduce radiation dose to as low as reasonably achievable (ALARA). [facility]: Dose Right [facility]: CareDose [facility]: Dose Right [facility]: Teradose 4D [facility]: Smart Junar RADIATION DOSE: CT Rad equipment meets quality standard of care and radiation dose reduction techniq ues were employed. CTDIvol: 48.6 mGy. DLP: 905 mGy-cm. mGy. LIMITATIONS: None. FINDINGS: VENTRICLES: Normal size and contour. CEREBRUM: No masses. No hemorrhage. No midline shift. No evidence for acute infarction. Normal gra y/white matter differentiation. No areas of low density in the white matter. CEREBELLUM: No masses. No hemorrhage. No alteration of density. No evidence for acute infarction. EXTRAAXIAL SPACES: No fluid collections. No masses. ORBITS AND GLOBE: No intra- or extraconal masses. Normal contour of globe without masses. CALVARIUM: No fracture. PARANASAL SINUSES: No fluid or mucosal thickening. SOFT TISSUES: No mass or hematoma. OTHER: No other significant finding. IMPRESSION: No evidence of acute intracranial process. EVIDENCE OF ACUTE STROKE: NO. COMMENT: Quality ID # [id number]: Final reports with documentation of one or more dose reduction techniques (e.g., Automated exposure control, adjustment of the mA and/or kV according to patient size, use of iterative reconstruction technique) TECHNICAL DOCUMENTATION: JOB ID: [id number] [employer]- All Rights Reserved Reading location - IP/workstation name: [email or web address]
[2018-12-16] MEDS ORDERED: PREDNISONE 20 MG TABLET PO ONE (16:33)
[2018-12-16] MEDS ORDERED: VALACYCLOVIR HCL 500 MG TABLET PO ONE (16:33)
[2018-12-16] MEDS ORDERED: ERYTHROMYCIN 0.5% OPH OINT 1 GM UNIT DOSE OD ONE (16:34)
--- NOTE | 2018-12-16 16:42 | ER Document Report ---
ED General - General Chief Complaint: Blurred Vision Stated Complaint: BLURRED VISION RIGHT EYE,FACE NUMB Time Seen by Provider: 12/16/18 14:06 Primary Care Provider: AVRIL WATSON PA-C [ALLIED HEALTH PROFESSIONAL] - Follow up as needed Mode of Arrival: Ambulatory TRAVEL OUTSIDE OF THE [place] IN LAST 30 DAYS: No - HPI Notes: Patient is a 38-year-old female that presents to the emergency department for chief complaint of right facial numbness and weakness. Patient states that today she noticed the right side of her face seemed to be drooping. She states that she has some numbness over her right cheek. She also reports some blurry vision in her right eye. She denies injury or trauma. She did have a unconjugated vaginal delivery on 10/26/18. She denies any known tick exposure. She denies associated headache. She does state yesterday she had a mild headache which has completely resolved. Patient denies any extremity numbness or weakness. Past Medical History: Thyroid cyst Past Surgical History: Negative Social History: Denies tobacco and alcohol use Family History: Reviewed and noncontributory for presenting illness Allergies: Reviewed, see documented allergy list. REVIEW OF SYSTEMS: CONSTITUTIONAL : No fever No chills No diaphoresis No recent illness EENT: vision changes No congestion No sore throat CARDIOVASCULAR: No chest pain No palpitations RESPIRATORY: No shortness of breath No cough No difficulty breathing GASTROINTESTINAL: No abdominal pain No nausea No vomiting No diarrhea GENITOURINARY: No dysuria No hematuria No difficulty urinating MUSCULOSKELETAL: No back pain No leg pain No arm pain SKIN: No rashes No lesions LYMPHATIC: No swollen, enlarged glands. NEUROLOGICAL: No lightheadedness No headache weakness paresthesias PSYCHIATRIC: No anxiety No depression PHYSICAL EXAMINATION: Vital signs reviewed, nursing noted reviewed. GENERAL: Well-appearing, well-nourished and in no acute distress. HEAD: Atraumatic, normocephalic. EYES: Incomplete closure of right eye and periorbital muscle paralysis. Extraocular movements intact, sclera anicteric, conjunctiva are mildly injected ENT: nares patent, oropharynx clear without exudates. Moist mucous membranes. NECK: Normal range of motion, supple without lymphadenopathy LUNGS: Breath sounds clear to auscultation bilaterally and equal. No wheezes rales or rhonchi. HEART: Regular rate and rhythm without murmurs ABDOMEN: Soft, nontender, normoactive bowel sounds. No rebound, guarding, or rigidity. No masses appreciated. EXTREMITIES: Nontender, good range of motion, no pitting or edema. NEUROLOGICAL: Right upper and lower facial paralysis with incomplete closure of right eye during blinking. Paresthesias of her right cheek. moves all extremities spontaneously Motor and sensory grossly intact on exam. PSYCH: Normal mood, normal affect. SKIN: Warm, Dry, normal turgor, no rashes or lesions noted on exposed skin - Related Data Allergies/Adverse Reactions: No Known Allergies Allergy (Verified 12/16/18 13:28) Past Medical History - General Information source: Patient - Social History Smoking Status: Unknown if Ever Smoked Chew tobacco use (# tins/day): No Frequency of alcohol use: Social Drug Abuse: None Family History: Reviewed & Not Pertinent Patient has suicidal ideation: No Patient has homicidal ideation: No Endocrine Medical History: Reports: Hx Diabetes Mellitus Type 2 - gestational diabetes Renal/ Medical History: Denies: Hx Peritoneal Dialysis GI Medical History: Reports: Hx Gastroesophageal Reflux Disease Psychiatric Medical History: Reports: Hx Depression Past Surgical History: Reports: Hx Genitourinary Surgery - D&C - Immunizations Hx Diphtheria, Pertussis, Tetanus Vaccination: Yes - declined Physical Exam - Vital signs Vitals: Temp Pulse Resp BP Pulse Ox 99.4 F 86 16 143/98 H 98 12/16/18 13:40 12/16/18 13:40 12/16/18 13:40 12/16/18 13:40 12/16/18 13:40 Course - Re-evaluation Re-evalutation: 12/16/18 16:46 Vitals reviewed. Nursing notes reviewed. 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 She does have blurry vision with some injection in her right eye likely related to irritation. She was given erythromycin ophthalmic ointment in the right eye and her right eye was taped closed. Patient referred to ophthalmology for close follow-up tomorrow. She will be started on Valtrex and prednisone for her Rivera's palsy. Her workup in the emergency room that was ordered in triage is unremarkable. Patient will be discharged home in stable condition. She was given return precautions and verbalized understanding. Laboratory 12/16/18 12/16/18 12/16/18 14:33 14:33 14:33 WBC 5.0 RBC 4.50 Hgb 13.2 Hct 39.1 MCV 87 MCH 29.4 MCHC 33.8 RDW 14.2 H Plt Count 259 Seg Neutrophils % 59.7 Lymphocytes % 31.1 Monocytes % 6.2 Eosinophils % 2.6 Basophils % 0.4 Absolute Neutrophils 3.0 Absolute Lymphocytes 1.6 Absolute Monocytes 0.3 Absolute Eosinophils 0.1 Absolute Basophils 0.0 Sodium 141.3 Potassium 4.5 Chloride 106 Carbon Dioxide 25 Anion Gap 10 BUN 12 Creatinine 0.69 Est GFR ( Amer) > 60 Est GFR (Non-Af Amer) > 60 Glucose 86 Calcium 9.3 Total Bilirubin 0.4 Direct Bilirubin 0.1 Neonat Total Bilirubin Not Reportable Neonat Direct Bilirubin Not Reportable Neonat Indirect Bili Not Reportable AST 24 ALT 40 Alkaline Phosphatase 84 Total Protein 7.8 Albumin 4.3 Urine Color STRAW Urine Appearance SLIGHTLY-CLOUDY Urine pH 6.0 Ur Specific [place] 1.005 Urine Protein NEGATIVE Urine Glucose (UA) NEGATIVE Urine Ketones NEGATIVE Urine Blood MODERATE H Urine Nitrite NEGATIVE Urine Bilirubin NEGATIVE Urine Urobilinogen NEGATIVE Ur Leukocyte Esterase SMALL H Urine WBC (Auto) 5 Urine RBC (Auto) 1 Urine Bacteria (Auto) 2+ Squamous Epi Cells Auto 13 Urine Ascorbic Acid NEGATIVE Head CT 12/16/18 14:11 IMPRESSION: No evidence of acute intracranial process. EVIDENCE OF ACUTE STROKE: NO. - Vital Signs Vital signs: Temp Pulse Resp BP Pulse Ox 99.4 F 86 10 L 154/99 H 99 12/16/18 13:40 12/16/18 13:40 12/16/18 15:44 12/16/18 15:44 12/16/18 15:44 - Laboratory Result Diagrams: 12/16/18 14:33 12/16/18 14:33 Laboratory results interpreted by me: 12/16/18 12/16/18 14:33 14:33 RDW 14.2 H Urine Blood MODERATE H Ur Leukocyte Esterase SMALL H Discharge - Discharge Clinical Impression: Rivera's palsy Condition: Stable Disposition: HOME, SELF-CARE Instructions: Rivera's Palsy ([facility]), Steroid Medication Additional Instructions: Please return to the emergency department if you have any worsening, or concern of your symptoms. Please return to the emergency department if you develop chest pain, difficulty breathing, severe abdominal pain, or ongoing vomiting. Please follow-up with your primary care physician in 2-3 days and any other recommended physicians. If prescribed, take all medications as directed. If you have any questions or concerns do not hesitate to return the emergency department for evaluation. Keep your right eye taped close since you are unable to fully blink to prevent irritation to your eye Prescriptions: Erythromycin Base [Erythromycin Oph 1 Gm Oint Ud] 1 applic OD TID 10 Days tube Prednisone [Deltasone 10 mg Tablet] 10 mg PO ASDIR PRN #32 tablet PRN Reason: Valacyclovir HCl [Valtrex 500 Mg Tablet] 1,000 mg PO Q8 7 Days tablet Referrals: AVRIL WATSON PA-C [ALLIED HEALTH PROFESSIONAL] - Follow up as needed HARRIS LARA MD [ACTIVE STAFF] - Follow up tomorrow
[2018-12-16 17:11] VITALS: BP 127/87
== END 2018-12-16 17:17 | disposition home or self-care (01) ==
LOC: ER 13:26
DX: G51.0 Bell's palsy (principal); H53.8 Other visual disturbances; K21.9 Gastro-esophageal reflux disease without esophagitis
CPT/HCPCS: 99284; 36415; 87086; 85025; 80053; 81001; 70450; J7512

== ENCOUNTER 2019-03-30 00:56 | Emergency (ER) | payer BC ==
[2019-03-30] MEDS ORDERED: CEPHALEXIN 500 MG CAPSULE PO ONE (02:53)
--- NOTE | 2019-03-30 02:58 | ER Document Report ---
ED General - General Chief Complaint: Ear Pain Stated Complaint: LEFT EAR ACHE, DISCOLORED PIMPLE ON STOMACH Time Seen by Provider: 03/30/19 02:36 Notes: Patient is a 30-year-old female presents with chief complaints. First complaint is of left ear pain. She says she probably has itching in the area and she uses Q-tips to try to clean the inside of her ear and scratch inside her ear canal. States that she is developed some soreness inside the ear canal which is causing some pain rating into her jaw. She denies any dental pain. No fevers. No abnormal discharge from the ear. No recent runny nose cough or congestion. Patient second complaint is of a small area of a skin lesion on her abdomen. She says is been there for a day. She said she only has this over one area. She notes that when she first woke up yesterday. She denies any previous history of this. She denies being burned on her abdomen. She is unsure if she may have had a bug bite. She has no other complaints at this time. TRAVEL OUTSIDE OF THE [place] IN LAST 30 DAYS: No - Related Data Allergies/Adverse Reactions: No Known Allergies Allergy (Verified 03/30/19 01:02) Past Medical History - Social History Smoking Status: Never Smoker Chew tobacco use (# tins/day): No Frequency of alcohol use: None Drug Abuse: None Family History: Reviewed & Not Pertinent Patient has suicidal ideation: No Patient has homicidal ideation: No Endocrine Medical History: Reports: Hx Diabetes Mellitus Type 2 - gestational diabetes Renal/ Medical History: Denies: Hx Peritoneal Dialysis GI Medical History: Reports: Hx Gastroesophageal Reflux Disease Psychiatric Medical History: Reports: Hx Depression Past Surgical History: Reports: Hx Genitourinary Surgery - D&C - Immunizations Hx Diphtheria, Pertussis, Tetanus Vaccination: Yes - declined Review of Systems - Review of Systems Notes: My Normal Review Basic REVIEW OF SYSTEMS: CONSTITUTIONAL : Denies fever, chills, or sweats. Denies recent illness. EENT: Left ear pain RESPIRATORY: Denies cough, cold, or chest congestion. Denies shortness of breath, difficulty breathing, or wheezing. MUSCULOSKELETAL: Denies neck or back pain or joint pain or swelling. SKIN: Lesion over lower anterior abdomen. NEUROLOGICAL: Denies altered mental status or loss of consciousness. Denies headache. ALL OTHER SYSTEMS REVIEWED AND NEGATIVE. Physical Exam - Vital signs Vitals: Temp Pulse Resp BP Pulse Ox 98.5 F 87 20 136/84 H 100 03/30/19 01:09 03/30/19 01:03/30/19 01:03/30/19 01:03/30/19 01:09 - Notes Notes: General Appearance: Well nourished, alert, cooperative, no acute distress, no obvious discomfort. Vitals: reviewed, See vital signs table. Head: no swelling or tenderness to the head Eyes: PERRL, EOMI, Conjuctiva clear Mouth: No decreasd moisture. Mild dentition Throat: No tonsillar inflammation, No airway obstruction, No lymphadenopathy Ear: Patient has normal-appearing tympanic membranes bilaterally. She has a little bit of irritation to the ear canal but it is not significantly red or swollen. It does not appear infected. Seems to be more irritated from frequent use of Q-tips. Neck: Supple, no neck tenderness, No neck swelling Abdomen: soft, No rigidity, No abdominal tenderness, No guarding, no rebound, patient has a small approximately 1 cm in size blister of the abdomen with some surrounding erythema. Difficult to tell if there is any secondary infection because of surrounding erythema if this is just localized inflammation. Blister has some small amount of whitish type material inside of it. There is no induration or evidence of abscess to palpation around the blister. Extremities: strength 5/5 in all extremities, good pulses in all extremities, no swelling or tenderness in the extremities, no edema. Skin: warm, dry, appropriate color Neuro: speech clear, oriented x 3, normal affect, responds appropriately to questions. Course - Re-evaluation Re-evalutation: 03/30/19 04:13 Exact cause of the blister abdomen is not clear. It appears consistent with likely burn but patient denies having a burn to her abdomen. She does not have any other blisters anywhere else. Could be a bug bite with secondary infection. I therefore we will place her on Keflex. I informed her that blister will hopefully resolve on its own and informed her not to actually deroofed the blister. We will have her follow-up with your doctor this week. I suspect her irritation is related to the frequent use of Q-tips. I informed her to stop using the Q-tips. I encouraged her return to ER if she has any redness or swelling to her ear, spreading redness around the blister, fevers, or if she feels unwell. Patient agrees with plan will be discharged home. Dictation of this chart was performed using voice recognition software; therefore, there may be some unintended grammatical errors. - Vital Signs Vital signs: Temp Pulse Resp BP Pulse Ox 98.1 F 78 16 116/55 L 98 03/30/19 03:36 03/30/19 03:36 03/30/19 03:36 03/30/19 03:36 03/30/19 03:36 Discharge - Discharge Clinical Impression: Left ear pain, Skin lesion Condition: Good Disposition: HOME, SELF-CARE Additional Instructions: The exact cause of the skin blister on your abdomen is not her percent clear. There is some surrounding redness. This could just be localized inflammation but it could also indicate underlying infection. We therefore placed you on an antibiotic. Please take antibiotic as prescribed. Please do not pop the blister as it will likely pop and drain on its own. If you develop more similar lesions with blisters then you should return to the ER. If you develop spreading redness or swelling you should return to ER immediately. Please follow-up with your doctor on Thursday for reevaluation. I suspect the pain in your ear is from irritation to the canal from frequent use of Q-tips. Please stop using Q-tips in your ear. If you have a lot of wax in your ear you can use an [id number] eardrop called Debrox which will help dissolve some of wax. Please return to ER if you have fevers or worsening pain in your ear. Prescriptions: RX: Cephalexin Monohydrate [Keflex 500 mg Capsule] 500 mg PO Q6H 5 Days capsule
[2019-03-30 03:38] VITALS: BP 116/55
== END 2019-03-30 03:38 | disposition home or self-care (01) ==
LOC: ER 00:56
DX: H92.02 Otalgia, left ear (principal); S30.821A Blister (nonthermal) of abdominal wall, initial encounter; X58.XXXA Exposure to other specified factors, initial encounter
CPT/HCPCS: 99282

== ENCOUNTER 2019-04-17 11:13 | Emergency (ER) | payer BC ==
--- NOTE | 2019-04-17 11:37 | ER Document Report ---
ED Medical Screen (RME) - General Chief Complaint: Vaginal Bleeding Stated Complaint: VAGINAL BLEEDING Time Seen by Provider: 04/17/19 11:32 Primary Care Provider: HANANE GR MD [Primary Care Provider] - Follow up as needed Mode of Arrival: Ambulatory Information source: Patient Notes: Patient presents emergency department with possible miscarriage. Reports last menstrual period was February 16. She took a home test which was positive. She reports last night she started bleeding and had to put on a pad. She reports this morning she woke up was lightheaded had diarrhea and noticed a clot. Patient is G5, P3. Reports some cramping. Patient has not been evaluated by S[employer] J[employer]ER SUPERVISOR yet. I have greeted and performed a rapid initial assessment of this patient. A comprehensive ED assessment and evaluation of the patient, analysis of test results and completion of the medical decision making process will be conducted by additional ED providers. Dictation of this chart was performed using voice recognition software; therefore, there may be some unintended grammatical errors. TRAVEL OUTSIDE OF THE [place] IN LAST 30 DAYS: No - Related Data Allergies/Adverse Reactions: No Known Allergies Allergy (Verified 03/30/19 01:02) Past Medical History Endocrine Medical History: Reports: Hx Diabetes Mellitus Type 2 - gestational diabetes Renal/ Medical History: Denies: Hx Peritoneal Dialysis GI Medical History: Reports: Hx Gastroesophageal Reflux Disease Psychiatric Medical History: Reports: Hx Depression Past Surgical History: Reports: Hx Genitourinary Surgery - D&C - Immunizations Hx Diphtheria, Pertussis, Tetanus Vaccination: Yes - declined Physical Exam - Vital signs Vitals: Temp Pulse Resp BP Pulse Ox 98.3 F 85 16 132/80 H 97 04/17/19 11:04/17/19 11:04/17/19 11:04/17/19 11:04/17/19 11:19 Course - Vital Signs Vital signs: Temp Pulse Resp BP Pulse Ox 98.3 F 85 16 132/80 H 97 04/17/19 11:04/17/19 11:19 04/17/19 11:04/17/19 11:04/17/19 11:19 Doctor's Discharge - Discharge Referrals: HANANE GR MD [Primary Care Provider] - Follow up as needed
[2019-04-17 12:06] LABS: ABSOLUTE EOSINOPHILS # (AUTO) 0.1 10^3/uL (0.0-0.6); ABSOLUTE LYMPHOCYTES (AUTO) 1.3 10^3/uL (0.5-4.7); ABSOLUTE MONOCYTES (AUTO) 0.3 10^3/uL (0.1-1.4); ABSOLUTE NEUT (AUTO) 3.7 10^3/uL (1.7-8.2); BASOPHILS % (AUTO) 0.6 % (0-2); EOSINOPHILS % (AUTO) 2.3 % (0-6); HEMATOCRIT 39.6 % (36.0-47.0); HEMOGLOBIN 13.1 g/dL (12.0-15.5); LYMPHOCYTES % (AUTO) 23.5 % (13-45); MEAN CORPUSCULAR HEMOGLOBIN 28.4 pg (27.0-33.4); MEAN CORPUSCULAR HGB CONC 33.1 g/dL (32.0-36.0); MEAN CORPUSCULAR VOLUME 86 fl (80-97); MONOCYTES % (AUTO) 6.2 % (3-13); PLATELET COUNT 256 10^3/uL (150-450); RED BLOOD COUNT 4.61 10^6/uL (3.72-5.28); RED CELL DISTRIBUTION WIDTH 14.8 % (11.5-14.0); SEGMENTED NEUTROPHILS % (AUTO) 67.4 % (42-78); TOTAL CELLS COUNTED % (AUTO) 100 %; WHITE BLOOD COUNT 5.4 10^3/uL (4.0-10.5)
[2019-04-17 12:24] LABS: ALANINE AMINOTRANSFERASE 19 U/L (9-52); ALBUMIN 3.7 g/dL (3.5-5.0); ALKALINE PHOSPHATASE 67 U/L (38-126); ANION GAP 6 (5-19); ASPARTATE AMINO TRANSFERASE 13 U/L (14-36); BILIRUBIN,DIRECT 0.1 mg/dL (0.0-0.4); BILIRUBIN,TOTAL 0.4 mg/dL (0.2-1.3); BLOOD UREA NITROGEN 8 mg/dL (7-20); CALCIUM 9.1 mg/dL (8.4-10.2); CARBON DIOXIDE 20 mmol/L (22-30); CHLORIDE 110 mmol/L (98-107); GLUCOSE 92 mg/dL (75-110); POTASSIUM 4.6 mmol/L (3.6-5.0); TOTAL PROTEIN 7.3 g/dL (6.3-8.2)
--- NOTE | 2019-04-17 12:57 | RADIOLOGY REPORT (SQ) ---
EXAM DESCRIPTION: U/S OB TRANSVAGINAL W/O DOP COMPLETED DATE/TIME: 04/17/2019 12:33 pm REASON FOR STUDY: preg vag bleed COMPARISON: None. TECHNIQUE: Transvaginal static and realtime grayscale images acquired of the pelvis. Additional amber cted spectral and color Doppler images recorded. All images stored on PACs. bHCG: Pending. CLINICAL DATES: 8 week 4 day. LIMITATIONS: None. FINDINGS: FETUS: Single Living intrauterine . ULTRASOUND EGA: 8 week 3 day. ULTRASOUND DILAN: 11/24/2019. EFW: Not applicable less than 20 weeks. CRL: 1.92 cm. FHR: 178 beats per minute. SURVEY: No visualized anomalies. AMNIOTIC FLUID: Adequate amount. PLACENTA: Not yet developed due to early gestation. SUBCHORIONIC BLEED: No. SIZE OF BLEED: Not applicable. UTERUS: No masses. No anomalies. CERVICAL LENGTH: 3.6 cm. Closed. RIGHT ADNEXA: Normal ovary with normal vascular flow. No adnexal free fluid. No adnexal masses. LEFT ADNEXA: Ovary not identified due to poor acoustical window. No adnexal free fluid. No adnexal masses. FREE FLUID: None. OTHER: No other significant finding. IMPRESSION: LIVING INTRAUTERINE . EGA 8 WEEK 3 DAY. Trimester of : First - 0 to 13 weeks. TECHNICAL DOCUMENTATION: JOB ID: [id number] [employer]- All Rights Reserved rev-03/05 Reading location - IP/workstation name: [email or web address]
--- NOTE | 2019-04-17 13:46 | ER Document Report ---
ED General - General Chief Complaint: Vaginal Bleeding Stated Complaint: VAGINAL BLEEDING Time Seen by Provider: 04/17/19 11:32 Primary Care Provider: HANANE GR MD [ACTIVE STAFF] - Follow up as needed Mode of Arrival: Ambulatory Notes: Patient presents to the emergency department with complaints of possible miscarriage. Patient reports last menstrual period was February 16. She took a home test and it was positive. She reports last night she experienced some vaginal bleeding so heavy she needed to wear a pad. She also experienced some cramping. This a.m. she did not have any further bleeding but when she had diarrhea she noted a blood clot in the toilet. She also reports some cramping increases when she stands up. No complaints of fever nausea vomiting diarrhea. No complaints of pain with void. Patient also complains of left ear pain with some bleeding. TRAVEL OUTSIDE OF THE [place] IN LAST 30 DAYS: No - HPI Onset: Yesterday Onset/Duration: Sudden Quality of pain: Cramping Associated symptoms: None Exacerbated by: Denies Relieved by: Denies Similar symptoms previously: No Recently seen / treated by doctor: No - Related Data Allergies/Adverse Reactions: No Known Allergies Allergy (Verified 03/30/19 01:02) Past Medical History - General Information source: Patient Last Menstrual Period: february 16 - Social History Smoking Status: Unknown if Ever Smoked Cigarette use (# per day): No Frequency of alcohol use: None Drug Abuse: None Lives with: Family Family History: Reviewed & Not Pertinent Patient has suicidal ideation: No Patient has homicidal ideation: No Endocrine Medical History: Reports: Hx Diabetes Mellitus Type 2 - gestational diabetes Renal/ Medical History: Denies: Hx Peritoneal Dialysis GI Medical History: Reports: Hx Gastroesophageal Reflux Disease Psychiatric Medical History: Reports: Hx Depression Past Surgical History: Reports: Hx Genitourinary Surgery - D&C - Immunizations Hx Diphtheria, Pertussis, Tetanus Vaccination: Yes - declined Review of Systems - Review of Systems Notes: Review HPI for review of systems., All other systems negative Physical Exam - Vital signs Vitals: Temp Pulse Resp BP Pulse Ox 98.3 F 85 16 132/80 H 97 04/17/19 11:19 04/17/19 11:19 04/17/19 11:19 04/17/19 11:19 04/17/19 11:19 - Notes Notes: PHYSICAL EXAMINATION: GENERAL: Well-appearing and in no acute distress HEAD: Atraumatic, normocephalic. EYES: Pupils equal round , extraocular movements intact, sclera anicteric, conjunctiva are normal. ENT: nares patent, oropharynx clear without exudates. Moist mucous membranes. right TM erythema NECK: Normal range of motion, supple without lymphadenopathy LUNGS: CTAB and equal. No wheezes rales or rhonchi. HEART: Regular rate and rhythm without murmurs ABDOMEN: Soft, no tenderness. No guarding, no rebound EXTREMITIES: Normal range of motion, NEUROLOGICAL: Cranial nerves grossly intact. PSYCH: Normal mood, normal affect. SKIN: Warm, Dry, normal turgor, no rashes or lesions noted Course - Re-evaluation Re-evalutation: 04/17/19 13:50 Ultrasound shows single living intrauterine 8 weeks 4 days with a heart rate of 178. Patient was instructed on all results. Instructed on the importance of follow-up with COAL HAULER OPERATOR. She verbalized understanding to all instructions. My Dictation of this chart was performed using voice recognition software; theref ore, there may be some unintended grammatical errors. - Vital Signs Vital signs: Temp Pulse Resp BP Pulse Ox 98.3 F 85 16 132/80 H 97 04/17/19 11:19 04/17/19 11:19 04/17/19 11:19 04/17/19 11:19 04/17/19 11:19 - Laboratory Result Diagrams: 04/17/19 11:48 04/17/19 11:48 Laboratory results interpreted by me: 04/17/19 04/17/19 11:48 11:48 RDW 14.8 H Sodium 136.0 L Chloride 110 H Carbon Dioxide 20 L AST 13 L Beta HCG, Quant 61459.00 H - Diagnostic Test Radiology reviewed: Image reviewed, Reports reviewed - EXAM DESCRIPTION: U/S OB TRANSVAGINAL W/O DOP COMPLETED DATE/TIME: 04/17/2019 12:33 pm REASON FOR STUDY: preg vag bleed COMPARISON: None. TECHNIQUE: Transvaginal static and realtime grayscale images acquired of the pelvis. Additional selected spectral and color Doppler images recorded. All images stored on PACs. bHCG: Pending. CLINICAL DATES: 8 week 4 day. LIMITATIONS: None. FINDINGS: FETUS: Single Living intrauterine . ULTRASOUND EGA: 8 week 3 day. ULTRASOUND DILAN: 11/24/2019. EFW: Not applicable less than 20 weeks. CRL: 1.92 cm. FHR: 178 beats per minute. SURVEY: No visualized anomalies. AMNIOTIC FLUID: Adequate amount. PLACENTA: Not yet developed due to early gestation. SUBCHORIONIC BLEED: No. SIZE OF BLEED: Not applicable. UTERUS: No masses. No anomalies. CERVICAL LENGTH: 3.6 cm. Closed. RIGHT ADNEXA: Normal ovary with normal vascular flow. No adnexal free fluid. No adnexal masses. LEFT ADNEXA: Ovary not identified due to poor acoustical window. No adnexal free fluid. No adnexal masses. FREE FLUID: None. OTHER: No other significant finding. IMPRESSION: LIVING INTRAUTERINE . EGA 8 WEEK 3 DAY. Trimester of : First - 0 to 13 weeks. TECHNICAL DOCUMENTATION: JOB ID: [id number] [employer] [facility]- All Rights Reserved Reading location - IP/workstation name: [email or web address] [id number] Dictated by: VAISHALI LAWLER MD [id number] CC: AVA PLAZA NP > 04/17/19 1257 Principal Maintenance Engineer [employer] Name: VAISHLAI LAWLER Provider ID: ROSE MARIE Discharge - Discharge Clinical Impression: , Vaginal bleeding, Otitis media Condition: Stable Disposition: HOME, SELF-CARE Instructions: Bleeding During Early ([facility]), [facility], [facility] [place], Otitis Media ([facility]), [facility] ([facility]) Additional Instructions: *You have been evaluated for vaginal bleeding, , you have been evaluated for your pain, otitis media Your ultrasound showed that a single living intrauterine at 8 weeks 3 days with heart rate of 178 bpm. Follow-up on April 19 for a repeat hCG level-you may contact the culture nurse at [phone] for results after 2 hours. Your level today was 71125.00 Take medication as prescribed Follow up with your COAL HAULER OPERATOR or the health department within 1 week Return to the emergency department for worsening condition changes or needs Monitor your blood pressure. Your blood pressure was elevated today. This may be because you were anxious, in pain or because you need medication. It is important to follow up with your primary care provider for full evaluation. Prescriptions: Amoxicillin Trihydrate [Amoxil 500 mg Capsule] 500 mg PO TID #30 capsule Forms: Elevated Blood Pressure, Follow-Up Laboratory Testing Referrals: HANANE GR MD [ACTIVE STAFF] - Follow up as needed
[2019-04-17 14:00] VITALS: BP 121/77
== END 2019-04-17 14:00 | disposition home or self-care (01) ==
LOC: ER 11:13
DX: O20.9 Hemorrhage in early pregnancy, unspecified (principal); O26.891 Other specified pregnancy related conditions, first trimester; H66.90 Otitis media, unspecified, unspecified ear; R19.7 Diarrhea, unspecified; R25.2 Cramp and spasm; H92.02 Otalgia, left ear; Z3A.08 8 weeks gestation of pregnancy
CPT/HCPCS: 36415; 76817; 80053; 84702; 85025; 86900; 86901; 99284

== ENCOUNTER 2019-05-11 16:26 | Emergency (ER) | payer OTHER, BC ==
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
[2019-05-11 20:22] LABS: APPEARANCE,URINE SLIGHTLY-CLOUDY; BILIRUBIN,URINE NEGATIVE (NEGATIVE); COLOR,URINE YELLOW; GLUCOSE, URINE NEGATIVE (NEGATIVE); KETONES,URINE NEGATIVE (NEGATIVE); LEUKOCYTE ESTERASE,URINE TRACE (NEGATIVE); NITRITE,URINE NEGATIVE (NEGATIVE); PROTEIN,URINE NEGATIVE (NEGATIVE); URINE SPECIFIC GRAVITY 1.019
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
[2019-05-11 22:05] VITALS: BP 130/81
== END 2019-05-11 21:55 | disposition home or self-care (01) ==
LOC: ER 16:26
DX: M54.2 Cervicalgia (principal); M54.5 Low back pain; M62.838 Other muscle spasm; M62.830 Muscle spasm of back; V49.40XA Driver injured in collision with unspecified motor vehicles in traffic accident, initial encounter; Y93.89 Activity, other specified; O02.1 Missed abortion
CPT/HCPCS: 76770; 76801; 81001; 99284

== ENCOUNTER 2019-05-12 17:37 | Day surgery (SDC) | payer BC ==
[~2019-05-12 17:37] MED LIST: DEXAMETHASONE SOD PHOSPHATE INJ 4 MG/1 ML VIAL ONE; DOXYCYCLINE HYCLATE 100 MG in DEXTROSE 5%-WATER 250 ML IV PRN; DOXYCYCLINE HYCLATE INJ 100 MG VIAL IV PRN; FENTANYL CITRATE INJ/PF 100 MCG/2 ML AMPUL ONE; MIDAZOLAM 2 MG/2 ML INJ ONE; ONDANSETRON HCL INJ/PF 4 MG/2 ML SDV ONE; PROPOFOL INJ 200 MG/20 ML VIAL IV ONE; SUCCINYLCHOLINE CHLORIDE INJ 200 MG/10 ML VIAL ONE
[2019-05-12 17:40] LABS: ABSOLUTE BASOPHILS # (AUTO) 0.1 10^3/uL (0.0-0.2); ABSOLUTE EOSINOPHILS # (AUTO) 0.1 10^3/uL (0.0-0.6); ABSOLUTE LYMPHOCYTES (AUTO) 2.2 10^3/uL (0.5-4.7); ABSOLUTE MONOCYTES (AUTO) 0.4 10^3/uL (0.1-1.4); ABSOLUTE NEUT (AUTO) 4.2 10^3/uL (1.7-8.2); BASOPHILS % (AUTO) 0.9 % (0-2); HEMATOCRIT 37.2 % (36.0-47.0); HEMOGLOBIN 12.4 g/dL (12.0-15.5); LYMPHOCYTES % (AUTO) 31.7 % (13-45); MEAN CORPUSCULAR HEMOGLOBIN 28.9 pg (27.0-33.4); MEAN CORPUSCULAR HGB CONC 33.4 g/dL (32.0-36.0); MEAN CORPUSCULAR VOLUME 87 fl (80-97); MONOCYTES % (AUTO) 5.2 % (3-13); PLATELET COUNT 228 10^3/uL (150-450); RED CELL DISTRIBUTION WIDTH 14.9 % (11.5-14.0); SEGMENTED NEUTROPHILS % (AUTO) 60.2 % (42-78); TOTAL CELLS COUNTED % (AUTO) 100 %; WHITE BLOOD COUNT 6.9 10^3/uL (4.0-10.5)
[2019-05-12] MEDS ORDERED: MEPERIDINE HCL/PF INJ 25 MG/1 ML DISP.SYRIN IV PRN (17:55)
[2019-05-12] MEDS ORDERED: FENTANYL CITRATE INJ/PF 100 MCG/2 ML AMPUL IV PRN ×3 (17:55)
[2019-05-12] MEDS ORDERED: DIPHENHYDRAMINE HCL 50 MG/ML VIAL IV PRN (17:55)
[2019-05-12] MEDS ORDERED: PROMETHAZINE HCL INJ 25 MG/1 ML VIAL IV PRN ×2 (17:55)
[2019-05-12] MEDS ORDERED: OXYCODONE-ACETAMINOPHEN 5-325 MG TABLET ONE (18:51)
[2019-05-12] MEDS ORDERED: OXYCODONE-ACETAMINOPHEN 5-325 MG TABLET PO PRN (19:15)
[2019-05-12] MEDS ORDERED: ONDANSETRON HCL 8 MG TABLET PO PRN (19:17)
[2019-05-12] MEDS ORDERED: METOCLOPRAMIDE HCL INJ/PF 10 MG/2 ML SDV ONE (19:24)
[2019-05-12] MEDS ORDERED: METOCLOPRAMIDE HCL INJ/PF 10 MG/2 ML SDV IV ONE (19:30)
[2019-05-12] MEDS ORDERED: IBUPROFEN 800 MG TABLET PO SCH (20:00)
[2019-05-12 21:11] VITALS: BP 110/64
--- NOTE | 2019-05-12 22:26 | OPERATIVE REPORT E ---
Operative Report NAME: DION RANDHAWA : 1980 AGE: 38Y DATE OF SURGERY: 05/12/2019 ROOM: PREOPERATIVE DIAGNOSIS: MISSED AB POSTOPERATIVE DIAGNOSIS: MISSED AB OPERATION: Suction D and C SURGEON: Agustina BARON M.D. ESTIMATED BLOOD LOSS: Less than 25 mL. TISSUE REMOVED OR ALTERED: Products of conception. ANESTHESIA: General. PROCEDURE: The patient was placed in dorsal lithotomy position, prepped and draped in sterile fashion. Speculum was placed and cervix was visualized and grasped with a single-toothed tenaculum. A large clot was noted in the os and this was removed manually and then a #8 suction catheter was used for suction and curettage, followed by sharp curettage, followed by repeat suction. The single-toothed tenaculum was removed and speculum was removed. Hemostasis was noted. She was taken to recovery room in good condition. DICTATING PHYSICIAN: Agustina BARON M.D. [id number] PHY#: [id number] ID: [id number] JOB#: [id number] ACCT: [id number] cc:Agustina BARON M.D. >
== END 2019-05-12 20:15 | disposition home or self-care (01) ==
LOC: OROUT 17:37
PROVIDERS: ATTEND Obstetrics & Gynecology Gynecology
DX: O02.1 Missed abortion (principal); Z67.90 Unspecified blood type, Rh positive
CPT/HCPCS: 86900; 86901; 36415; 86850; 85025; 88305 ×2; 59820; J2250; J1100; J3490; J3010; J2765; J0330; J2405; J7060; J2704; 1965

== ENCOUNTER → 2019-05-12 | Outpatient (CLI) | payer BC ==
[2019-05-12 16:58] VITALS: BP 105/73
== END ==
LOC: EDSTATUS 17:01 → LC 17:06
PROVIDERS: ATTEND Obstetrics & Gynecology Gynecology
DX: Z53.9 Procedure and treatment not carried out, unspecified reason (principal)

== ENCOUNTER 2020-08-20 23:33 | Emergency (ER) | payer BC, OTHER ==
--- NOTE | 2020-08-20 23:58 | ER Document Report ---
ED Medical Screen (RME) - General Chief Complaint: Vision Problem Stated Complaint: VISUAL DISTURBANCES/POST Time Seen by Provider: 08/20/20 23:43 Primary Care Provider: KEITH BARON MD [Primary Care Provider] - Follow up as needed Mode of Arrival: Ambulatory Information source: Patient Notes: Patient is a 40-year-old female with recent vaginal delivery on 08/11. Patient reports she had hemorrhage, lost multiple liters of blood, had to have a Bakkari balloon placed. States she continues to have bright red bleeding, she is unable to quantify the amount as she states she is not using pads she is using adult diapers. She states it is more than what it should be as per her experience with other pregnancies. She is also reporting very foul- smelling bloody discharge. She is concerned she may have some type of infection. She denies any fever or chills. She does report intermittent headaches with visual disturbances. She denies having any issues with her blood pressure. She is mildly hypertensive on arrival. She is very anxious and tearful. I have greeted and performed a rapid initial assessment of this patient. A comprehensive ED assessment and evaluation of the patient, analysis of test results and completion of the medical decision making process will be conducted by additional ED providers. I have specifically instructed the patient or family members with the patient to immediately return to any nursing staff should anything change in the patient's condition or with their chief complaint. TRAVEL OUTSIDE OF THE [place] IN LAST 30 DAYS: No - Related Data Allergies/Adverse Reactions: No Known Allergies Allergy (Verified 08/20/20 23:45) Past Medical History - Social History Frequency of alcohol use: None Drug Abuse: None - Past Medical History Cardiac Medical History: Denies: Hx Coronary Artery Disease, Hx Heart Attack, Hx Hypertension Pulmonary Medical History: Denies: Hx Asthma, Hx Bronchitis, Hx COPD, Hx Pneumonia Neurological Medical History: Denies: Hx Cerebrovascular Accident, Hx Seizures Endocrine Medical History: Reports: Hx Diabetes Mellitus Type 2 - gestational diabetes Renal/ Medical History: Denies: Hx Peritoneal Dialysis GI Medical History: Reports: Hx Gastroesophageal Reflux Disease Musculoskeltal Medical History: Denies Hx Arthritis Psychiatric Medical History: Reports: Hx Depression Past Surgical History: Reports: Hx Genitourinary Surgery - D&C - Immunizations Hx Diphtheria, Pertussis, Tetanus Vaccination: Yes - declined Physical Exam - Vital signs Vitals: Temp Pulse Resp BP Pulse Ox 99.0 F 88 20 147/81 H 100 08/20/20 23:42 08/20/20 23:42 08/20/20 23:42 08/20/20 23:42 08/20/20 23:42 Course - Vital Signs Vital signs: Temp Pulse Resp BP Pulse Ox 99.0 F 88 20 147/81 H 100 08/20/20 23:42 08/20/20 23:42 08/20/20 23:42 08/20/20 23:42 08/20/20 23:42 Doctor's Discharge - Discharge Referrals: KEITH BARON MD [Primary Care Provider] - Follow up as needed
[2020-08-21 00:15] LABS: ABSOLUTE EOSINOPHILS # (AUTO) 0.2 10^3/uL (0.0-0.6); ABSOLUTE LYMPHOCYTES (AUTO) 2.1 10^3/uL (0.5-4.7); ABSOLUTE MONOCYTES (AUTO) 0.4 10^3/uL (0.1-1.4); BASOPHILS % (AUTO) 0.4 % (0-2); EOSINOPHILS % (AUTO) 2.3 % (0-6); HEMATOCRIT 26.6 % (36.0-47.0); HEMOGLOBIN 9.2 g/dL (12.0-15.5); MEAN CORPUSCULAR HEMOGLOBIN 30.1 pg (27.0-33.4); MEAN CORPUSCULAR HGB CONC 34.7 g/dL (32.0-36.0); MEAN CORPUSCULAR VOLUME 87 fl (80-97); MONOCYTES % (AUTO) 5.7 % (3-13); PLATELET COUNT 344 10^3/uL (150-450); RED BLOOD COUNT 3.06 10^6/uL (3.72-5.28); RED CELL DISTRIBUTION WIDTH 14.7 % (11.5-14.0); SEGMENTED NEUTROPHILS % (AUTO) 64.6 % (42-78); TOTAL CELLS COUNTED % (AUTO) 100 %; WHITE BLOOD COUNT 7.7 10^3/uL (4.0-10.5)
[2020-08-21 00:28] LABS: ALBUMIN 3.4 g/dL (3.5-5.0); ALKALINE PHOSPHATASE 80 U/L (38-126); ANION GAP 10 (5-19); ASPARTATE AMINO TRANSFERASE 17 U/L (14-36); BILIRUBIN,TOTAL 0.2 mg/dL (0.2-1.3); BLOOD UREA NITROGEN 11 mg/dL (7-20); CARBON DIOXIDE 18 mmol/L (22-30); CHLORIDE 109 mmol/L (98-107); GLUCOSE 102 mg/dL (75-110); POTASSIUM 4.2 mmol/L (3.6-5.0); TOTAL PROTEIN 6.2 g/dL (6.3-8.2)
--- NOTE | 2020-08-21 00:55 | RADIOLOGY REPORT (SQ) ---
Ultrasound pelvis limited on 08/21/2020 at 12:04 AM CLINICAL INDICATION: 10 days , vaginal bleeding, evaluate for retained products of conception COMPARISON: 11/03/2017 FINDINGS: Multiple sonographic images are obtained throughout the pelvis by transabdominal approach only, both transverse and sagittal images are obtained. Uterus measures approximately 14.9 x 8.6 x 10.2 cm. Endometrial stripe measures 1.2 cm. The endometrium is mildly heterogeneous. No vascularity is noted within the endometrium to suggest retained product of conception. No focal myometrial lesion is noted. Neither ovary is visualized. No adnexal mass or fluid collection is noted. No free fluid is noted. IMPRESSION: Essentially unremarkable uterus without evidence to suggest retained products of conception.
[2020-08-21 02:17] LABS: APPEARANCE,URINE CLEAR; BILIRUBIN,URINE NEGATIVE (NEGATIVE); COLOR,URINE STRAW; GLUCOSE, URINE NEGATIVE (NEGATIVE); KETONES,URINE NEGATIVE (NEGATIVE); LEUKOCYTE ESTERASE,URINE LARGE (NEGATIVE); NITRITE,URINE NEGATIVE (NEGATIVE); PROTEIN,URINE NEGATIVE (NEGATIVE); URINE SPECIFIC GRAVITY 1.003; UROBILINOGEN,URINE NEGATIVE mg/dL (<2.0)
[2020-08-21 02:49] LABS: UR PRO/CREAT RATIO RESULT 0.6 mg/mg (0.0-0.2); URINE CREATININE 27.2 mg/dL (15-278)
[2020-08-21 04:46] VITALS: BP 127/85
[2020-08-21 05:32] LABS: RBCS (WET MOUNT) FEW RBCS SEEN; T.VAGINALIS (WET MOUNT) NO TRICHOMONAS SEEN; WBCS (WET MOUNT) 1+ WBCS SEEN; YEAST (WET MOUNT) NO YEAST SEEN
--- NOTE | 2020-08-21 05:38 | ER Document Report ---
ED General - General Chief Complaint: Vision Problem Stated Complaint: VISUAL DISTURBANCES/POST Time Seen by Provider: 08/20/20 23:43 Primary Care Provider: KEITH BARON MD [ACTIVE STAFF] - Follow up as needed Mode of Arrival: Ambulatory Notes: 40-year-old female G4, P4 status post term vaginal delivery 08/11/20 complicated by hemorrhage requiring transfusion, Bakri balloon, and emergency D&C presents with persistent low volume foul-smelling bloody discharge since being discharged from hospital >1 week ago. Says that she has been using depends and changes them about 4 times a day when the smell begins to bother her but there never soaked through. Her pelvic pain has been decreasing since discharge from hospital and now is very minimal. Patient also complains of mild diffuse headache intermittently which is not present now. Patient also complains of occasional floaters in her bilateral eyes that are not currently present. Patient says she has had a floaters occasionally over the past several years but has never seen an manufacturing worker about them. Patient denies any current headache, vomiting, confusion, blurry vision, double vision, eye pain, neck pain or stiffness, abdominal pain, urinary symptoms, sexual intercourse since delivery, fever, lightheadedness, dizziness, lower extremity edema, rash, bruising, chest pain, shortness of breath TRAVEL OUTSIDE OF THE [place] IN LAST 30 DAYS: No - Related Data Allergies/Adverse Reactions: No Known Allergies Allergy (Verified 08/20/20 23:45) Past Medical History - General Information source: Patient - Social History Smoking Status: Former Smoker Frequency of alcohol use: None Drug Abuse: None Family History: Reviewed & Not Pertinent - Past Medical History Cardiac Medical History: Denies: Hx Coronary Artery Disease, Hx Heart Attack, Hx Hypertension Pulmonary Medical History: Denies: Hx Asthma, Hx Bronchitis, Hx COPD, Hx Pneumonia Neurological Medical History: Denies: Hx Cerebrovascular Accident, Hx Seizures Endocrine Medical History: Reports: Hx Diabetes Mellitus Type 2 - gestational diabetes Renal/ Medical History: Denies: Hx Peritoneal Dialysis GI Medical History: Reports: Hx Gastroesophageal Reflux Disease Musculoskeletal Medical History: Denies Hx Arthritis Psychiatric Medical History: Reports: Hx Depression Past Surgical History: Reports: Hx Genitourinary Surgery - D&C - Immunizations Hx Diphtheria, Pertussis, Tetanus Vaccination: Yes - declined Review of Systems - Review of Systems Notes: REVIEW OF SYSTEMS: CONSTITUTIONAL : Denies fever, chills, or sweats. EENT: Denies recent cold/sinus symptoms, denies throat pain CARDIOVASCULAR: Denies chest pain, ADRIANNA RESPIRATORY: Denies cough, denies shortness of breath. GASTROINTESTINAL: Denies abdominal pain, nausea/vomiting. GENITOURINARY: Denies difficulty urinating, painful urination. FEMALE GENITOURINARY: + abnormal vaginal bleeding, vaginal discharge. MUSCULOSKELETAL: Denies neck pain, back pain. SKIN: Denies rash or skin lesions. HEMATOLOGIC : Denies easy bruising or bleeding. LYMPHATIC: Denies swollen, enlarged glands. NEUROLOGICAL: Denies headache, denies change in gait. PSYCHIATRIC: Denies anxiety or stress or depression. Physical Exam - Vital signs Vitals: Temp Pulse Resp BP Pulse Ox 99.0 F 88 20 147/81 H 100 08/20/20 23:42 08/20/20 23:42 08/20/20 23:42 08/20/20 23:42 08/20/20 23:42 - Notes Notes: PHYSICAL EXAMINATION: GENERAL: Well-appearing, well-nourished and in no acute distress. HEAD: Atraumatic, normocephalic. EYES: Pupils equal round and appropriate constriction, sclera anicteric, conjunctiva are normal, normal funduscopic exam ENT: nares patent, moist mucous membranes. NECK: Normal range of motion, supple without lymphadenopathy LUNGS: Breath sounds clear to auscultation bilaterally and equal. No wheezes rales or rhonchi. HEART: Regular rate and rhythm without murmurs ABDOMEN: Soft, nontender, no guarding, no masses, no CVAT PELVIC: Very scant blood-tinged discharge, normal cervical os with no erythema or discharge from os, no CMT, no adnexal tenderness or masses. Exam chaperoned by BLESSING Roberto. EXTREMITIES: Normal range of motion, no pitting or edema. No cyanosis. NEUROLOGICAL: Awake, alert, conversing appropriately, moves all extremities spontaneously. Cranial nerves II through XII intact bilaterally, normal [id number] bilaterally, 5 out of 5 strength in all extremities, normal sensation in all extremities, narrow based steady non-ataxic gait PSYCH: Normal mood, normal affect. SKIN: Warm, Dry, normal turgor, no rashes or lesions noted. Course - Re-evaluation Re-evalutation: 08/21/20 05:58 Patient very well-appearing with symptoms have been improving since hospital discharge. Benign abdominal exam, nontender pelvic exam, very low volume blood- tinged discharge consistent with normal lochia, no risk factors for GC and no signs of endometritis/PID on exam. Patient's headache completely resolved at this time, patient's visual changes have been intermittently present for several years and are currently absent in the ED. Patient borderline hypotensive initially but resolved without any intervention on repeating blood pressure, likely secondary to exertion, and no signs of eclampsia/preeclampsia. Patient's hemoglobin low but not requiring transfusion given low volume of bleeding and patient recollection of hemoglobin at time of hospital discharge this is around her post transfusion baseline. Patient has follow-up scheduled on August 24 with her OB and instructed her to follow-up with her primary doctor and manufacturing worker within 1 week. Informed her of her multiple minor lab abnormalities which require follow-up and gave her a copy of all results. Gave patient extensive return to ED precautions which she demonstrated understanding of. Patient denied any other questions or concerns at time of discharge. Patient declined a visual acuity exam which was reasonable as patient has no current visual symptoms. - Vital Signs Vital signs: Temp Pulse Resp BP Pulse Ox 98.7 F 89 20 127/85 H 100 08/21/20 03:14 08/21/20 03:14 08/21/20 03:14 08/21/20 04:46 08/21/20 03:14 - Laboratory Result Diagrams: 08/21/20 00:00 08/21/20 00:00 Laboratory results interpreted by me: 08/20/20 08/20/20 08/21/20 23:45 23:45 00:00 RBC 3.06 L Hgb 9.2 L Hct 26.6 L RDW 14.7 H Sodium Chloride Carbon Dioxide Total Protein Albumin Urine Blood LARGE H Ur Leukocyte Esterase LARGE H Protein/Creatinin Ratio 0.6 H Urine Total Protein 17.0 H 08/21/20 00:00 RBC Hgb Hct RDW Sodium 136.7 L Chloride 109 H Carbon Dioxide 18 L Total Protein 6.2 L Albumin 3.4 L Urine Blood Ur Leukocyte Esterase Protein/Creatinin Ratio Urine Total Protein Discharge - Discharge Clinical Impression: Visual disturbance, Pelvic pain Disposition: HOME, SELF-CARE Additional Instructions: You had several lab results that were mildly abnormal which you should follow up with the primary doctor and your fig bar machine operator. Bring all of your lab results with you when you go to your follow-up appointments. Follow-up with your primary doctor, fig bar machine operator, and manufacturing worker within 1 week. If you have any worsening bleeding, worsening pelvic or belly pain, fever of 100.4 or higher, return of headache, change in vision, neck pain or stiffness, confusion, swelling in body or face, bruising, yellow skin, or any other worsening or alarming symptoms return to the emergency department immediately. Referrals: KEITH BARON MD [ACTIVE STAFF] - Follow up as needed TOMMY VÁSQUEZ, OT [OPTHALMIC BASKET PERSON] - Follow up as needed HWIOT AVILA DO [ACTIVE STAFF] - Follow up as needed KRISTINE CONNORS MD [ACTIVE STAFF] - Follow up as needed HARRIS LARA MD [ACTIVE STAFF] - Follow up as needed RAMA CHOWDHURY MD [ACTIVE STAFF] - Follow up in 1 week
[2020-08-21 07:05] LABS: CHLAM PCR NOT DETECTED (NOT DETECT)
== END 2020-08-21 05:57 | disposition home or self-care (01) ==
LOC: ER 23:33
DX: O90.89 Other complications of the puerperium, not elsewhere classified (principal); H53.8 Other visual disturbances; R10.2 Pelvic and perineal pain; R51.9 Headache, unspecified; Z98.890 Other specified postprocedural states; O90.81 Anemia of the puerperium; D64.9 Anemia, unspecified; Z87.891 Personal history of nicotine dependence
CPT/HCPCS: 36415; 76857; 80053; 81001; 82570; 83735; 84156; 84550; 85025; 87070; 87205; 87210; 87491; 87591; 99284

== ENCOUNTER → 2020-10-11 | Outpatient (CLI) | payer BC, MEDICAID ==
--- NOTE | 2020-10-11 13:03 | ER RDC ASSESSMENT REPORT ---
Intake - In the Last 14 days Have you traveled outside [place]?: No Have you been in close contact with someone CONFIRMED: Yes Worked in Healthcare?: No - Symptoms Subjective Fever([place] feverish): Yes Chills: Yes Muscule Aches: Yes Runny Nose: Yes Sore Throat: Yes Cough (New or worsening chronic cough): Yes Shortness of breath: No Nausea or Vomiting: No Headache: Yes Abdominal Pain: No Diarrhea(3 or more loose stools in last 24 hours): No - Do you have any of the following Chronic lung disease: Asthma or emphysema or COPD: No Cystic Fibrosis: No Diabetes: No High Blood Pressure: No Cardiovascular Disease: No Chronic Kidney Disease: No Chronic Liver Disease: No Chronic blood disorder like Sickle Cell Disease: No Weak immune system due to disease or medication: No Neurologic condition that limits movement: No Developmental delay - Moderate to Severe: No Recent (within past 2 weeks) or current : No Morbid Obesity (>100 pounds over ideal weight): No Other Comment: Height 5 feet 11 inches weight 255 pounds - Objective Temperature: 99.3 F Pulse Rate: 97 Respiratory Rate: 18 Blood Pressure: 143/78 O2 Sat by Pulse Oximetry: 97 Objective: Given above, testing performed: If Testing Performed: Test Specimen Type Sent to General - General Information source: Patient Notes: Patient here at [facility] for Covid testing patient reports had exposure to who had tested positive patient started to have symptoms a couple of days ago to include fatigue congestion chills fever runny nose cough sneezing headache. Patient has not followed up with a PCP at this point. Patient has a 1-month-old. - Related Data Allergies/Adverse Reactions: No Known Allergies Allergy (Verified 08/20/20 23:45) Past Medical History - General Information source: Patient - Social History Smoking Status: Never Smoker Family History: Reviewed & Not Pertinent - Past Medical History Cardiac Medical History: Denies: Hx Coronary Artery Disease, Hx Heart Attack, Hx Hypertension Pulmonary Medical History: Denies: Hx Asthma, Hx Bronchitis, Hx COPD, Hx Pneumonia Neurological Medical History: Denies: Hx Cerebrovascular Accident, Hx Seizures Endocrine Medical History: Reports: Hx Diabetes Mellitus Type 2 - gestational diabetes Renal/ Medical History: Denies: Hx Peritoneal Dialysis GI Medical History: Reports: Hx Gastroesophageal Reflux Disease Musculoskeletal Medical History: Denies Hx Arthritis Psychiatric Medical History: Reports: Hx Depression Past Surgical History: Reports: Hx Genitourinary Surgery - D&C Physical Exam - General General appearance: Appears well, Alert In distress: None Notes: PHYSICAL EXAMINATION: GENERAL: Well-appearing and in no acute distress. HEAD: Atraumatic, normocephalic. EYES: sclera anicteric, conjunctiva are normal. ENT: nares patent. Moist mucous membranes. NECK: Normal range of motion, supple without lymphadenopathy LUNGS: CTAB and equal. No wheezes rales or rhonchi. Respirations even and unlabored lung sounds clear. HEART: Regular rate and rhythm without murmurs ABDOMEN: Soft, nontender, normal bowel sounds, no guarding. EXTREMITIES: Normal range of motion, no pitting edema. No cyanosis. NEUROLOGICAL: Cranial nerves grossly intact. Normal speech. Normal gait. PSYCH: Normal mood, normal affect. SKIN: Warm, Dry, normal turgor, no rashes or lesions noted Diagnostic Results Laboratory Results: Pending strep culture. Pending Covid testing results. Patient provided instructions regarding Covid to include: As a person under investigation for Covid 19, the [place] department of Health and Human Services, division of public health advises you to adhere to the following guidance until your test results are reported to you. If your test result is positive, you will receive additional information from your provider and your local health department at that time. Remain at home until you are cleared by the health provider or public health authorities. Keep a log of visitors to your home, notify any visitors to your home of your isolation status. If you plan to move to a new address or leave the [facility], notify the local health department in your County. Call your doctor or seek care if you have an urgent medical need. Before seeking medical care, call ahead to get instructions from the provider before arriving at the medical office clinic or hospital. Notify them that you are being tested for the virus that causes Covid 19 so that arrangements can be made, as necessary, to prevent transmission to others in the healthcare setting. Next, notify the local health department in your county. If a medical emergency arises and you need to call 911, inform the first responders that you are being tested for the virus that causes Covid 19. Next, notify the local health department in your county. Patient Education/Counseling Counseling/Education: Patient presents with upper respiratory symptoms worrisome for possible Covid 19. Patient does not have emergency worring symptoms such as difficulty breathing, shortness of breath, chest pain, pressure, confusion or cyanosis. Patient appears suitable for discharge. Patient instructed to follow-up with urgent care or to ED for persistent or worsening symptoms. Patient's vital signs are stable and patient is nontoxic in appearance. Good return precautions have been discussed with patient, patient verbalized understanding and is agreeable with discharge plan of care at this time. RDC Discharge - Discharge Condition: Stable Disposition: Home; Selfcare
[2020-10-11 13:04] VITALS: BP 143/78
[2020-10-11 16:42] LABS: A TYPE INFLUENZA AG NEGATIVE (NEGATIVE); B INFLUENZA AG NEGATIVE (NEGATIVE)
== END ==
LOC: RDC 11:01
PROVIDERS: ATTEND Nurse Practitioner Family
DX: Z20.828 Contact with and (suspected) exposure to other viral communicable diseases (principal); R50.9 Fever, unspecified; R05 Cough; R51.9 Headache, unspecified; R09.89 Other specified symptoms and signs involving the circulatory and respiratory systems; M79.10 Myalgia, unspecified site; R53.83 Other fatigue; K21.9 Gastro-esophageal reflux disease without esophagitis
CPT/HCPCS: 87070; 87880; 87804; U0003; C9803; 87635; 99201; 99211